=== PATIENT | male | born 1985 | race Caucasian/White ===

== ENCOUNTER 2018-03-01 11:51 | Emergency (ER) | payer OTHER ==
--- NOTE | 2018-03-01 14:46 | ER ---
Nurse's Notes [facility] Name: Yuri Puga Jr Age: 32 yrs Sex: Male : 1985 Arrival Date: 03/01/2018 Time: 11:55 Bed 24 Private MD: Diagnosis: Pilonidal cyst with abscess Presentation: 03/01 12:05 Presenting complaint: Patient states: A long time ago I had a pilonidal cyst and today lk1 it opened up and is oozing some infection. Transition of care: patient was not received from another setting of care. Onset of symptoms was March 01, 2018 at 10:00. Initial Sepsis Screen: Does the patient meet any 2 criteria? No. Patient's initial sepsis screen is negative. Does the patient have a suspected source of infection? Yes: Skin breakdown/wound. Care prior to arrival: None. 12:05 Method Of Arrival: Ambulatory lk1 12:05 Acuity: FERNANDA 3 lk1 Triage Assessment: 12:08 General: Appears in no apparent distress. Behavior is calm, cooperative, appropriate lk1 for age. Pain: Complains of pain in buttocks Pain currently is 5 out of 10 on a pain scale. Historical: - Allergies: 12:07 No Known Allergies; lk1 - PMHx: 12:07 None; lk1 - PSHx: 12:08 plastic surgery to upper lip; lk1 - Immunization history:: Adult Immunizations up to date. - Social history:: Smoking status: Patient uses tobacco products, chewing tobacco. Screenin:45 Abuse screen: Denies threats or abuse. Denies injuries from another. Nutritional aj1 screening: No deficits noted. Tuberculosis screening: No symptoms or risk factors identified. 15:14 Fall Risk None identified. mb3 Assessment: 14:45 General: Appears in no apparent distress. uncomfortable, Behavior is calm, cooperative, aj1 appropriate for age. Pain: Complains of pain in coccyx Pain does not radiate. Pain currently is 5 out of 10 on a pain scale. Quality of pain is described as sharp. Neuro: No deficits noted. Level of Consciousness is awake, alert, obeys commands, Oriented to person, place, time, situation, Gait is steady, Speech is normal, Facial symmetry appears normal. Cardiovascular: Patient's skin is warm and dry. Respiratory: Airway is patent Respiratory effort is even, unlabored, Respiratory pattern is regular, symmetrical. GI: No signs and/or symptoms were reported involving the gastrointestinal system. : No signs and/or symptoms were reported regarding the genitourinary system. EENT: No signs and/or symptoms were reported regarding the EENT system. Derm: Abscess located on buttocks. Musculoskeletal: No signs and/or symptoms reported regarding the musculoskeletal system. Circulation, motion, and sensation intact. Vital Signs: 12:09 BP 142 / 86; Pulse 108; Resp 15; Temp 98.1(TE); Pulse Ox 99% on R/A; Weight 112.94 kg lk1 (R); Height 5 ft. 8 in. (172.72 cm) (R); Pain 5/10; 15:16 BP 138 / 86; Pulse 90; Resp 16; Pulse Ox 99% on R/A; mb3 12:09 Body Mass Index 37.86 (112.94 kg, 172.72 cm) lk1 ED Course: 11:55 Patient arrived in ED. sb2 12:06 Triage completed. lk1 12:10 Arm band placed on right wrist. lk1 14:02 Jennifer Alvarado, RN is Primary Nurse. aj1 14:32 Reginaldo Lobato NP is PHCP. pm1 14:32 Jerman Dawson MD is Attending Physician. pm1 14:45 Louis Bennett MD is Referral Physician. pm1 14:45 Patient has correct armband on for positive identification. aj1 14:45 No provider procedures requiring assistance completed. aj1 15:14 Patient did not have IV access during this emergency room visit. mb3 Administered Medications: 14:56 Drug: [place] 10 mg-325 mg 1 tabs Route: PO; mb3 15:14 Follow up: Response: No adverse reaction mb3 14:56 Drug: Bactrim (160 mg-800 mg (DS) 1 tablet Route: PO; mb3 15:14 Follow up: Response: No adverse reaction mb3 14:56 Drug: Doxycycline 100 mg Route: PO; mb3 15:13 Follow up: Response: No adverse reaction mb3 Outcome: 14:46 Discharge ordered by . pm1 15:14 Discharged to home ambulatory. mb3 15:14 Condition: stable 15:14 Discharge instructions given to patient, Instructed on discharge instructions, follow up and referral plans. medication usage, Demonstrated understanding of instructions, follow-up care, medications, Prescriptions given X 3. 15:15 Patient left the ED. mb3 Signatures: Jennifer Alvarado RN RN aj1 Megan Isbell RN RN lk1 Reginaldo Lobato, EULALIO MONUMENT LETTERER pm1 Dionne Beckham sb2 Jonathan Williamson RN RN mb3
--- NOTE | 2018-03-01 14:47 | EDPHYS ---
Physician Documentation [facility] Name: Yuri Puga Jr Age: 32 yrs Sex: Male : 1985 Arrival Date: 03/01/2018 Time: 11:55 Bed 24 Private MD: ED Physician Jerman Dawson HPI: 03/01 15:00 This 32 yrs old Male presents to ER via Ambulatory with complaints of Wound pm1 Infection. 15:00 the patient presents with a swollen area of the coccyx. Description: draining, raised. pm1 Onset: The symptoms/episode began/occurred this morning. Possible cause(s): pilonidal cyst. Associated signs and symptoms: Pertinent positives: drainage, Pertinent negatives: fever. Modifying factors: the symptoms are alleviated by nothing, the symptoms are aggravated by touching. Severity of symptoms: in the emergency department the symptoms have improved. The patient has experienced similar episodes in the past, 5 other times. Treated with prior I\T\D. The patient has not recently seen a physician. Historical: - Allergies: 12:07 No Known Allergies; lk1 - PMHx: 12:07 None; lk1 - PSHx: 12:08 plastic surgery to upper lip; lk1 - Immunization history:: Adult Immunizations up to date. - Social history:: Smoking status: Patient uses tobacco products, chewing tobacco. ROS: 15:00 Constitutional: Negative for fever, chills, and weight loss, Eyes: Negative for injury, pm1 pain, redness, and discharge, ENT: Negative for injury, pain, and discharge, Neck: Negative for injury, pain, and swelling, Cardiovascular: Negative for chest pain, palpitations, and edema, Respiratory: Negative for shortness of breath, cough, wheezing, and pleuritic chest pain, Abdomen/GI: Negative for abdominal pain, nausea, vomiting, diarrhea, and constipation, Back: Negative for injury and pain, : Negative for injury, bleeding, discharge, and swelling, MS/Extremity: Negative for injury and deformity. 15:00 Neuro: Negative for headache, weakness, numbness, tingling, and seizure. 15:00 Skin: Positive for abscess, of the coccyx. Exam: 15:00 Constitutional: This is a well developed, well nourished patient who is awake, alert, pm1 and in no acute distress. Head/Face: Normocephalic, atraumatic. Neck: Trachea midline, no thyromegaly or masses palpated, and no cervical lymphadenopathy. Supple, full range of motion without nuchal rigidity, or vertebral point tenderness. No Meningismus. Chest/axilla: Normal chest wall appearance and motion. Nontender with no deformity. No lesions are appreciated. Cardiovascular: Regular rate and rhythm with a normal S1 and S2. No gallops, murmurs, or rubs. Normal PMI, no JVD. No pulse deficits. Respiratory: Lungs have equal breath sounds bilaterally, clear to auscultation and percussion. No rales, rhonchi or wheezes noted. No increased work of breathing, no retractions or nasal flaring. Abdomen/GI: Soft, non-tender, with normal bowel sounds. No distension or tympany. No guarding or rebound. No evidence of tenderness throughout. Back: No spinal tenderness. No costovertebral tenderness. Full range of motion. 15:00 Skin: abscess, that is small, no fluctuance, induration, pointing, or surrounding cellulitis. No drainage from abscess when expressed. Vital Signs: 12:09 BP 142 / 86; Pulse 108; Resp 15; Temp 98.1(TE); Pulse Ox 99% on R/A; Weight 112.94 kg lk1 (R); Height 5 ft. 8 in. (172.72 cm) (R); Pain 5/10; 15:16 BP 138 / 86; Pulse 90; Resp 16; Pulse Ox 99% on R/A; mb3 12:09 Body Mass Index 37.86 (112.94 kg, 172.72 cm) lk MDM: 14:32 Patient medically screened. pm1 14:44 Data reviewed: vital signs. Data interpreted: Pulse oximetry: on room air is 99 %. pm1 Interpretation: normal. Counseling: I had a detailed discussion with the patient and/or guardian regarding: the historical points, exam findings, and any diagnostic results supporting the discharge/admit diagnosis, the need for outpatient follow up, for definitive care, a general surgeon, to return to the emergency department if symptoms worsen or persist or if there are any questions or concerns that arise at home. Administered Medications: 14:56 Drug: [place] 10 mg-325 mg 1 tabs Route: PO; mb3 15:14 Follow up: Response: No adverse reaction mb3 14:56 Drug: Bactrim (160 mg-800 mg (DS) 1 tablet Route: PO; mb3 15:14 Follow up: Response: No adverse reaction mb3 14:56 Drug: Doxycycline 100 mg Route: PO; mb3 15:13 Follow up: Response: No adverse reaction mb3 Disposition: 03/02 06:15 Co-signature as Attending Physician, Jerman Dawson MD. Disposition: 03/01/18 14:46 Discharged to Home. Impression: Pilonidal cyst with abscess. - Condition is Stable. - Discharge Instructions: Pilonidal Cyst. - Prescriptions for Tylenol- Codeine #3 300-30 mg Oral Tablet - take 2 tablets by ORAL route every 6 hours As needed; 20 tablet. Doxycycline Hyclate 100 mg Oral Tablet - take 1 tablet by ORAL route every 12 hours; 20 tablet. Bactrim DS 800- 160 mg Oral Tablet - take 1 tablet by ORAL route every 12 hours for 10 days; 20 tablet. - Work release form, Medication Reconciliation Form, Thank You Letter, Antibiotic Education, Prescription Opioid Use form. - Follow up: Emergency Department; When: As needed; Reason: Worsening of condition. Follow up: Louis Bennett MD; When: 2 - 3 days; Reason: Recheck today's complaints, Continuance of care, Re-evaluation by your physician. - Problem is new. - Symptoms have improved. Signatures: Megan Isbell RN RN lk1 Reginaldo Lobato, [employer] pm1 Jerman Dawson MD MD Jonathan Williamson RN RN mb3 Corrections: (The following items were deleted from the chart) 03/01 14:46 14:46 03/01/2018 14:46 Discharged to Home. Impression: Pilonidal cyst without abscess. pm1 Condition is Stable. Forms are Medication Reconciliation Form, Thank You Letter, Antibiotic Education, Prescription Opioid Use. Follow up: Emergency Department; When: As needed; Reason: Worsening of condition. Follow up: Louis Bennett; When: 2 - 3 days; Reason: Recheck today's complaints, Continuance of care, Re-evaluation by your physician. Problem is new. Symptoms have improved. pm1 15:15 14:46 03/01/2018 14:46 Discharged to Home. Impression: Pilonidal cyst with abscess. mb3 Condition is Stable. Forms are Medication Reconciliation Form, Thank You Letter, Antibiotic Education, Prescription Opioid Use. Follow up: Emergency Department; When: As needed; Reason: Worsening of condition. Follow up: Louis Bennett; When: 2 - 3 days; Reason: Recheck today's complaints, Continuance of care, Re-evaluation by your physician. Problem is new. Symptoms have improved. pm1
[2018-03-01] MEDS ORDERED: SMZ./TMP. 800/160 MG TABLET ONE (14:53)
[2018-03-01] MEDS ORDERED: HYDROCODONE/APAP 10/325 TAB ONE (14:53)
[2018-03-01] MEDS ORDERED: DOXYCYCLINE 100 MG CAP PO ONE (14:53)
== END 2018-03-01 15:15 | disposition home or self-care (01) ==
LOC: ER 11:51
DX: L05.01 Pilonidal cyst with abscess (principal)
CPT/HCPCS: 99283

== ENCOUNTER 2019-01-06 16:15 | Emergency (ER) | payer BC ==
--- NOTE | 2019-01-06 17:26 | EKG ---
Test Date: 2019-01-06 Test Time: 16:35:41 [employer]: [employer] MEASUREMENT RESULTS: Intervals: Rate: 110 AR: 148 QRSD: 88 QT: 312 QTc: 422 [place]: P: 37 AR: 148 QRS: 65 T: 12 INTERPRETIVE STATEMENTS: Sinus tachycardia Cannot rule out Anterior infarct, age undetermined Abnormal ECG Compared to ECG 04/20/2016 08:49:44 Myocardial infarct finding now present ST (T wave) deviation no longer present Electronically Signed On 01-06-19 17:25:33 CDT by Sandro Hunt
--- NOTE | 2019-01-06 17:41 | RAD REPORT ---
EXAM DESCRIPTION: RAD - Chest Single View - 01/06/2019 5:36 pm CLINICAL HISTORY: CHEST PAIN Chest pain. COMPARISON: Chest Single View dated 09/24/2017; Chest Single View dated 04/20/2016 FINDINGS: Portable technique limits examination quality. The lungs are grossly clear. The heart is normal in size. No displaced fractures. IMPRESSION: No acute intrathoracic process suspected.
[2019-01-06] MEDS ORDERED: ASPIRIN 81 MG CHEWABLE TABLET ONE (17:47)
[2019-01-06] MEDS ORDERED: KETOROLAC 30 MG/ML INJ ONE (17:47)
[2019-01-06 17:49] LABS: Absolute Monocytes 0.7 K/uL (0.1-1.3); Absolute Neutrophil 4.4 K/uL (1.8-8.0); Basophils % 0.5 % (0-1.3); Hematocrit 45.3 % (39.6-49.0); Lymphocytes % 36.8 % (15.3-44.8); MPV 8.9 fL (7.6-11.3); Monocytes % 8.7 % (3.3-12.3); RBC Red Blood Cell Count 5.02 M/uL (4.33-5.43)
[2019-01-06 18:08] LABS: Protime INR 0.96
[2019-01-06 18:10] LABS: ALT/SGPT 47 U/L (12-78); AST/SGOT 21 U/L (15-37); Alkaline Phosphatase 90 U/L (45-117); BUN Blood Urea Nitrogen 7 mg/dL (7-18); Bicarbonate 26 mmol/L (21-32); Bilirubin Direct < 0.1 mg/dL (0-0.2); Bilirubin Total 0.3 mg/dL (0.2-1.0); Glucose Level 114 mg/dL (74-106); Magnesium 2.1 mg/dL (1.8-2.4); Potassium 3.5 mmol/L (3.5-5.1); Protein, Total 8.1 g/dL (6.4-8.2); Sodium Level 142 mmol/L (136-145); Troponin (Emerg Dept Use Only) < 0.02 ng/mL (0.0-0.045)
[2019-01-06 18:19] LABS: NT PRO-BNP < 5 pg/mL (<125)
[2019-01-06] MEDS ORDERED: NA CHLORIDE 0.9% 1,000 ML ONE (18:28)
[2019-01-06 18:42] LABS: Barbiturates NEGATIVE (NEGATIVE); Benzodiazepines NEGATIVE (NEGATIVE); Cocaine NEGATIVE (NEGATIVE); METHAMPHETAM NEGATIVE (NEGATIVE); Methadone NEGATIVE (NEGATIVE); Opiates NEGATIVE (NEGATIVE); Phencyclidine NEGATIVE (NEGATIVE); THC Cannibis NEGATIVE (NEGATIVE)
--- NOTE | 2019-01-06 18:51 | RAD REPORT ---
EXAM DESCRIPTION: US - Extrem Venous W Compress [place] - 01/06/2019 6:46 pm CLINICAL HISTORY: PAIN Bilateral leg edema and swelling. COMPARISON: No comparisons TECHNIQUE: Real-time sonographic interrogation of the left and right lower extremity deep venous sys tems was performed. FINDINGS: Normal compressibility, flow augmentation, phasic flow and spontaneous flow is identified in both the left and right lower extremity deep venous systems. IMPRESSION: No sonographic evidence of left or right lower extremity deep venous thrombosis.
--- NOTE | 2019-01-06 19:13 | EDPHYS ---
Physician Documentation [facility] Name: Yuri Puga Jr Age: 33 yrs Sex: Male : 1985 Arrival Date: 01/06/2019 Time: 16:18 Bed 2 Private MD: Fran Richardson E ED Physician Av Thibodeaux HPI: 01/06 17:22 This 33 yrs old Male presents to ER via Ambulatory with complaints of Chest rogelio Pain, Arm Pain, Feet Swelling. 17:22 The patient or guardian reports chest pain that is located primarily in the anterior rogelio chest wall, left. The pain does not radiate. Associated signs and symptoms: The patient has no apparent associated signs or symptoms. The chest pain is described as aching. Modifying factors: The symptoms are alleviated by remaining still, the symptoms are aggravated by movement, palpation of area. Severity of pain: At its worst the pain was mild in the emergency department the pain is unchanged. The patient has not experienced similar symptoms in the past. Historical: - Allergies: 16:26 No Known Allergies; aa5 - Home Meds: 16:26 None [Active]; aa5 - PMHx: 16:27 None; aa5 - PSHx: 16:26 plastic surgery to upper lip; Appendectomy; aa5 - Immunization history:: Flu vaccine is not up to date. - Social history:: Smoking status: Patient uses tobacco products, chewing tobacco. - Ebola Screening: : No symptoms or risks identified at this time. - Family history:: not pertinent. ROS: 17:22 Constitutional: Negative for fever, chills, and weight loss, Eyes: Negative for injury, rogelio pain, redness, and discharge, ENT: Negative for injury, pain, and discharge, Neck: Negative for injury, pain, and swelling, Cardiovascular: Negative for chest pain, palpitations, and edema, Respiratory: Negative for shortness of breath, cough, wheezing, and pleuritic chest pain, Abdomen/GI: Negative for abdominal pain, nausea, vomiting, diarrhea, and constipation, Back: Negative for injury and pain, : Negative for injury, bleeding, discharge, and swelling, MS/Extremity: Negative for injury and deformity, Skin: Negative for injury, rash, and discoloration, Neuro: Negative for headache, weakness, numbness, tingling, and seizure, Psych: Negative for depression, anxiety, suicide ideation, homicidal ideation, and hallucinations, Allergy/Immunology: Negative for hives, rash, and allergies, Endocrine: Negative for neck swelling, polydipsia, polyuria, polyphagia, and marked weight changes, Hematologic/Lymphatic: Negative for swollen nodes, abnormal bleeding, and unusual bruising. Exam: 17:22 Constitutional: This is a well developed, well nourished patient who is awake, alert, rogelio and in no acute distress. Head/Face: Normocephalic, atraumatic. Eyes: Pupils equal round and reactive to light, extra-ocular motions intact. Lids and lashes normal. Conjunctiva and sclera are non-icteric and not injected. Cornea within normal limits. Periorbital areas with no swelling, redness, or edema. ENT: Nares patent. No nasal discharge, no septal abnormalities noted. Tympanic membranes are normal and external auditory canals are clear. Oropharynx with no redness, swelling, or masses, exudates, or evidence of obstruction, uvula midline. Mucous membranes moist. Neck: Trachea midline, no thyromegaly or masses palpated, and no cervical lymphadenopathy. Supple, full range of motion without nuchal rigidity, or vertebral point tenderness. No Meningismus. Cardiovascular: Regular rate and rhythm with a normal S1 and S2. No gallops, murmurs, or rubs. Normal PMI, no JVD. No pulse deficits. Respiratory: Lungs have equal breath sounds bilaterally, clear to auscultation and percussion. No rales, rhonchi or wheezes noted. No increased work of breathing, no retractions or nasal flaring. Abdomen/GI: Soft, non-tender, with normal bowel sounds. No distension or tympany. No guarding or rebound. No evidence of tenderness throughout. Back: No spinal tenderness. No costovertebral tenderness. Full range of motion. Male : Normal genitalia with no discharge or lesions. Skin: Warm, dry with normal turgor. Normal color with no rashes, no lesions, and no evidence of cellulitis. 17:22 Chest/axilla: Inspection: normal, Palpation: tenderness, that is mild, of the left clavicle. 17:27 Musculoskeletal/extremity: ROM: full active range of motion, full passive range of rogelio motion, Circulation is intact in all extremities. Sensation intact. Compartment Syndrome exam of affected extremity: is normal. no pain, no numbness, no tingling, no sensation deficit, no palor, no weak pulses, DVT Exam: No signs of deep vein thrombosis. no pain, no swelling, no tenderness, negative Homans' sign noted on exam, no appreciated bluish discoloration, no erythema, no increased warmth. Vital Signs: 16:25 BP 143 / 70; Pulse 122; Resp 18 S; Temp 98.6(TE); Pulse Ox 96% ; Weight 120.2 kg (R); aa5 Height 5 ft. 8 in. (172.72 cm) (R); Pain 5/10; 16:35 BP 135 / 90; Pulse 103; Resp 17; Pulse Ox 98% on R/A; sg 19:15 BP 124 / 74; Pulse 84; Resp 18; Pulse Ox 98% on R/A; lp1 16:25 Body Mass Index 40.29 (120.20 kg, 172.72 cm) aa5 MDM: 16:55 Patient medically screened. [facility] 17:22 Data reviewed: vital signs, nurses notes, lab test result(s), EKG, radiologic studies, [facility] plain films. 01/06 17:03 Order name: Basic Metabolic Panel; Complete Time: 19:08 [facility] 01/06 17:03 Order name: CBC with Diff; Complete Time: 18:06 [facility] 01/06 17:03 Order name: LFT's; Complete Time: 19:08 [facility] 01/06 17:03 Order name: Magnesium; Complete Time: 19:08 [facility] 01/06 17:03 Order name: NT PRO-BNP; Complete Time: 19:08 [facility] 01/06 17:03 Order name: PT-INR; Complete Time: 18:15 [facility] 01/06 17:03 Order name: Troponin (emerg Dept Use Only); Complete Time: 19:08 [facility] 01/06 17:03 Order name: XRAY Chest (1 view); Complete Time: 17:42 [facility] 01/06 17:36 Order name: D-Dimer; Complete Time: 18:06 [facility] 01/06 18:05 Order name: CT Chest For PE Angio 01/06 18:05 Order name: Extremity Venous W Compression Bilateral US; Complete Time: 19:08 01/06 18:16 Order name: UDS; Complete Time: 19:08 [facility] 01/06 18:39 Order name: Urine Dipstick--Ancillary (enter results) 01/06 17:03 Order name: EKG; Complete Time: 17:04 [facility] 01/06 17:03 Order name: Cardiac monitoring; Complete Time: 17:35 [facility] 01/06 17:03 Order name: EKG - Nurse/Tech; Complete Time: 17:35 [facility] 01/06 17:03 Order name: IV Saline Lock; Complete Time: 17:35 [facility] 01/06 17:03 Order name: Labs collected and sent; Complete Time: 17:35 [facility] 01/06 17:03 Order name: O2 Per Protocol; Complete Time: 17:34 [facility] 01/06 17:03 Order name: O2 Sat Monitoring; Complete Time: 17:34 [facility] 01/06 19:26 Order name: EKG - Nurse/Tech; Complete Time: 19:39 lp1 Administered Medications: 17:40 Drug: Aspirin 81 mg Route: PO; sg 17:42 Drug: TORadol 30 mg Route: IVP; Site: left antecubital; sg 18:20 Drug: NS 0.9% 1000 ml Route: IV; Rate: 1 bolus; Site: left antecubital; sg 19:52 Follow up: IV Status: Completed infusion; IV Intake: 1000ml lp1 19:26 Drug: [place] 10 mg-325 mg 1 tabs Route: PO; lp1 19:52 Follow up: Response: No adverse reaction lp1 Disposition: 01/06/19 19:12 Discharged to Home. Impression: Strain of muscle and tendon of front wall of thorax, Other chest pain. - Condition is Stable. - Discharge Instructions: Nonspecific Chest Pain, Chest Wall Pain, Chest Wall Pain, [id number], Nonspecific Chest Pain, [id number], Aspirin and Your Heart. - Prescriptions for Ibuprofen 600 mg Oral Tablet - take 1 tablet by ORAL route every 8 hours As needed take with food; 21 tablet. - Medication Reconciliation Form, Thank You Letter, Antibiotic Education, Prescription Opioid Use form. - Follow up: Fran Richardson; When: 2 - 3 days; Reason: Recheck today's complaints, Continuance of care, Re-evaluation by your physician. Follow up: Pb Garner; When: 2 - 3 days; Reason: Recheck today's complaints, Re-evaluation by your physician. - Problem is new. - Symptoms have improved. Signatures: Dispatcher [employer] EDJaleel Lewis, RN RN Av Poole MD MD cha Calderon, Audri, RN RN aa5 Kisha South RN RN lp1 Corrections: (The following items were deleted from the chart) 19:53 19:12 01/06/2019 19:12 Discharged to Home. Impression: Strain of muscle and tendon of lp1 front wall of thorax; Other chest pain. Condition is Stable. Discharge Instructions: Nonspecific Chest Pain, Chest Wall Pain, Chest Wall Pain, [id number], Nonspecific Chest Pain, [id number], Aspirin and Your Heart. Prescriptions for Ibuprofen 600 mg Oral Tablet - take 1 tablet by ORAL route every 8 hours As needed take with food; 21 tablet. and Forms are Medication Reconciliation Form, Thank You Letter, Antibiotic Education, Prescription Opioid Use. Follow up: Fran Richardson; When: 2 - 3 days; Reason: Recheck today's complaints, Continuance of care, Re-evaluation by your physician. Follow up: Pb Garner; When: 2 - 3 days; Reason: Recheck today's complaints, Re-evaluation by your physician. Problem is new. Symptoms have improved. rogelio
--- NOTE | 2019-01-06 19:13 | ER ---
Nurse's Notes [facility] Name: Yuri Puga Jr Age: 33 yrs Sex: Male : 1985 Arrival Date: 01/06/2019 Time: 16:18 Bed 2 Private MD: Fran Richardson E Diagnosis: Strain of muscle and tendon of front wall of thorax;Other chest pain Presentation: 01/06 16:24 Presenting complaint: Patient states: left-sided chest pain on and off x 2 weeks ago. aa5 Pt reports chest pain radiates to left shoulder and left scapular area. Pt denies SOB. Also c/o swelling to feet. Transition of care: patient was not received from another setting of care. Onset of symptoms was December 2018. Risk Assessment: Do you want to hurt yourself or someone else? Patient reports no desire to harm self or others. Initial Sepsis Screen: Does the patient meet any 2 criteria? No. Patient's initial sepsis screen is negative. Does the patient have a suspected source of infection? No. Patient's initial sepsis screen is negative. Care prior to arrival: None. 16:24 Method Of Arrival: Ambulatory aa5 16:24 Acuity: FERNANDA 2 aa5 Historical: - Allergies: 16:26 No Known Allergies; aa5 - Home Meds: 16:26 None [Active]; aa5 - PMHx: 16:27 None; aa5 - PSHx: 16:26 plastic surgery to upper lip; Appendectomy; aa5 - Immunization history:: Flu vaccine is not up to date. - Social history:: Smoking status: Patient uses tobacco products, chewing tobacco. - Ebola Screening: : No symptoms or risks identified at this time. - Family history:: not pertinent. Screenin:35 Abuse screen: Denies threats or abuse. Denies injuries from another. Nutritional sg screening: No deficits noted. Tuberculosis screening: No symptoms or risk factors identified. Never had TB. Fall Risk None identified. Assessment: 16:35 General: Appears in no apparent distress. well groomed, well developed, well nourished, sg Behavior is calm, cooperative, appropriate for age. Pain: Complains of pain in left scapular area and left arm Pain radiates to left arm Quality of pain is described as sharp, Aggravated by pulling and pushing on heavy objects reproduces the pain per the patient. Neuro: Level of Consciousness is awake, alert, obeys commands, Oriented to person, place, time, situation, Furniture Cleaner are equal bilaterally Moves all extremities. Full function Gait is steady, Speech is normal, Facial symmetry appears normal, Pupils are PERRLA. Cardiovascular: Capillary refill is brisk in bilateral fingers Patient's skin is warm and dry. Chest pain quality is sharp. Respiratory: Airway is patent Respiratory effort is even, unlabored, Respiratory pattern is regular, symmetrical. GI: Abdomen is round non-distended, Bowel sounds present X 4 quads. : No signs and/or symptoms were reported regarding the genitourinary system. EENT: No signs and/or symptoms were reported regarding the EENT system. Derm: Skin is pink, warm \T\ dry. Musculoskeletal: Circulation, motion, and sensation intact. Range of motion: intact in all extremities, pt reports feet swelling that is intermittent, denies any swelling today. 19:20 Reassessment: Patient returned from CT; States continued pain to chest radiating to lp1 left shoulder; Provider notified; Verbal order for Boylston 10-325mg PO and repeat EKG. Vital Signs: 16:25 BP 143 / 70; Pulse 122; Resp 18 S; Temp 98.6(TE); Pulse Ox 96% ; Weight 120.2 kg (R); aa5 Height 5 ft. 8 in. (172.72 cm) (R); Pain 5/10; 16:35 BP 135 / 90; Pulse 103; Resp 17; Pulse Ox 98% on R/A; sg 19:15 BP 124 / 74; Pulse 84; Resp 18; Pulse Ox 98% on R/A; lp1 16:25 Body Mass Index 40.29 (120.20 kg, 172.72 cm) aa5 ED Course: 16:18 Patient arrived in ED. mr 16:19 Fran Richardson MD is Private Physician. mr 16:24 Arm band placed on. aa5 16:25 Triage completed. aa5 16:38 Keron Mendoza, SOCRATES is Primary Nurse. bp 16:40 Patient has correct armband on for positive identification. Bed in low position. Call sg light in reach. Side rails up X2. Adult w/ patient. engineering surveyor on. Pulse ox on. NIBP on. Head of bed elevated. 16:55 Av Thibodeaux MD is Attending Physician. [facility] 17:03 EKG done, by clean room technician. reviewed by Av Thibodeaux MD. 3 17:33 Initial lab(s) drawn, by me, sent to lab. Inserted saline lock: 20 gauge in left dh3 antecubital area, using aseptic technique. Blood collected. 17:36 XRAY Chest (1 view) In Process Unspecified. EDMS 18:30 Radiology exam delayed due to [place] in patient's room at this time. nj 18:45 Extremity Venous W Compression Bilateral US In Process Unspecified. EDMS 19:05 CT Chest For PE Angio In Process Unspecified. EDMS 19:12 Fran Richardson MD is Referral Physician. [facility] 19:12 Pb Garner MD is Referral Physician. [facility] 19:15 Patient maintains SpO2 saturation greater than 95% on room air. lp1 19:40 No provider procedures requiring assistance completed. lp1 19:52 IV discontinued, No redness/swelling at site. Pressure dressing applied. lp1 Administered Medications: 17:40 Drug: Aspirin 81 mg Route: PO; sg 17:42 Drug: TORadol 30 mg Route: IVP; Site: left antecubital; sg 18:20 Drug: NS 0.9% 1000 ml Route: IV; Rate: 1 bolus; Site: left antecubital; sg 19:52 Follow up: IV Status: Completed infusion; IV Intake: 1000ml lp1 19:26 Drug: Boylston 10 mg-325 mg 1 tabs Route: PO; lp1 19:52 Follow up: Response: No adverse reaction lp1 Intake: 19:52 IV: 1000ml; Total: 1000ml. lp1 Outcome: 19:12 Discharge ordered by . [facility] 19:52 Discharged to home ambulatory, with significant other. lp1 19:52 Condition: improved 19:52 Discharge instructions given to patient, Instructed on discharge instructions, follow up and referral plans. medication usage, Demonstrated understanding of instructions, follow-up care, medications, Prescriptions given X 1. 19:53 Patient left the ED. lp1 Signatures: Dispatcher [employer] EDMS Jaleel Glover, RN RN Av Poole MD MD cha Rivera, Mary mr NievesMaria Victoria, RN RN 5 Kisha South RN RN 1 Allan Bledsoe Deanna [facility] Keron Mendoza RN RN bp Simran Ornelas 3 Corrections: (The following items were deleted from the chart) 16:27 16:24 Acuity: FERNANDA 3 aa5 aa5 16:48 16:35 Pain: Complains of pain in right posterior upper chest wall Pain radiates to sg right arm Quality of pain is described as sharp, Aggravated by pulling and pushing on heavy objects reproduces the pain per the patient sg
--- NOTE | 2019-01-06 19:15 | RAD REPORT ---
EXAM DESCRIPTION: CT - Chest For Pe Angio - 01/06/2019 7:05 pm CLINICAL HISTORY: Chest pain. CHEST PAIN COMPARISON: No comparisons TECHNIQUE: CT angiogram of the pulmonary arteries was performed with MIP. All CT scans are performed using dose optimization technique as appropriate and may include automated exposure control or mA/KV adjustment according to patient size. FINDINGS: No evidence of pulmonary thromboembolism. No acute aortic finding demonstrated. The lungs are clear. No significant pericardial or pleural fluid. No concerning bony finding. IMPRESSION: No evidence of pulmonary thromboembolism. No acute lung findings.
[2019-01-06] MEDS ORDERED: HYDROCODONE/APAP 10/325 TAB ONE (19:33)
[2019-01-06 19:47] LABS: Urine Blood NEGATIVE (NEG); Urine Glucose NEGATIVE (NEG); Urine Protein NEGATIVE (NEG); Urine Specific Gravity <1.005 (1.005-1.030); Urine pH 5.5 (5.0-7.0)
--- NOTE | 2019-01-07 17:17 | EKG ---
Test Date: 2019-01-06 Test Time: 19:34:38 Traffic Officer: [id number] MEASUREMENT RESULTS: Intervals: Rate: 82 WY: 132 QRSD: 82 QT: 372 QTc: 434 [place]: P: 22 WY: 132 QRS: 74 T: 29 INTERPRETIVE STATEMENTS: Normal sinus rhythm Normal ECG Compared to ECG 01/06/2019 16:35:41 Sinus tachycardia no longer present Myocardial infarct finding no longer present Electronically Signed On 01-07-19 17:15:04 CDT by Sandro Hunt
== END 2019-01-06 19:53 | disposition home or self-care (01) ==
LOC: ER 16:15
DX: S29.011A Strain of muscle and tendon of front wall of thorax, initial encounter (principal); Z72.0 Tobacco use
CPT/HCPCS: 36415; 71045; 71275; 80048; 80076; 80307; 81003; 83735; 83880; 84484; 85025; 85379; 85610; 93005; 93970; 96361; 96374; 99285; J7030; Q9967

== ENCOUNTER 2019-04-27 22:28 | Emergency (ER) | payer BC ==
--- NOTE | 2019-04-28 02:41 | ER ---
Nurse's Notes [facility] Name: Yuri Puga Jr Age: 33 yrs Sex: Male : 1985 Arrival Date: 04/27/2019 Time: 22:30 Bed 6 Private MD: Fran Richardson E Diagnosis: Paresthesia of skin-left side of face;Left side facial droop Presentation: 04/27 22:43 Presenting complaint: Patient states: Yesterday at about 11am I felt like my lips were la1 swollen and it was harder to dip my tobacco, from there it progressed to decreased sensation and numbness on the left side of my face. Transition of care: patient was not received from another setting of care. Onset of symptoms was April 27, 2019. Risk Assessment: Do you want to hurt yourself or someone else? Patient reports no desire to harm self or others. Initial Sepsis Screen: Does the patient meet any 2 criteria? No. Patient's initial sepsis screen is negative. Does the patient have a suspected source of infection? No. Patient's initial sepsis screen is negative. Care prior to arrival: None. 22:43 Method Of Arrival: Ambulatory la1 22:43 Acuity: FERNANDA 3 la1 Historical: - Allergies: 22:45 No Known Allergies; la1 - Home Meds: 22:45 None [Active]; la1 - PMHx: 22:45 None; la1 - PSHx: 22:45 Appendectomy; la1 - Immunization history:: Adult Immunizations up to date. - Social history:: Smoking status: Patient uses tobacco products, chewing tobacco. - Ebola Screening: : No symptoms or risks identified at this time. Screenin:46 Abuse screen: Denies threats or abuse. Nutritional screening: No deficits noted. la1 Tuberculosis screening: No symptoms or risk factors identified. VAN Screening: Arm Drift: Patient shows no arm weakness. Patient is VAN negative. Fall Risk None identified. 23:09 VAN Screening: Arm Drift: Patient shows no arm weakness. Patient is VAN negative. jd3 Assessment: 22:47 Neuro: Level of Consciousness is awake, alert, obeys commands, Oriented to person, la1 place, time, situation, Resaw Feeder are equal bilaterally Moves all extremities. Full function Gait is steady, Speech is normal, Facial droop on left, Pupils are PERRLA. 23:03 General: Appears in no apparent distress. uncomfortable, Behavior is calm, cooperative, jd3 appropriate for age, anxious. Pain: Denies pain. Neuro: Level of Consciousness is awake, alert, obeys commands, Oriented to person, place, time, situation, Resaw Feeder are equal bilaterally Moves all extremities. Full function Gait is steady, Speech is normal, Facial symmetry appears normal, Pupils are PERRLA, Numbness in left side of face Reports numbness in left side of face since yesterday morning. Cardiovascular: Denies chest pain, nausea, shortness of breath, Capillary refill < 3 seconds Patient's skin is warm and dry. Respiratory: Airway is patent Respiratory effort is even, unlabored, Respiratory pattern is regular, symmetrical, Denies cough, shortness of breath. GI: No signs and/or symptoms were reported involving the gastrointestinal system. : No signs and/or symptoms were reported regarding the genitourinary system. EENT: No signs and/or symptoms were reported regarding the EENT system. Derm: Skin is intact, Skin is dry, Skin is normal, Skin temperature is warm. Musculoskeletal: Circulation, motion, and sensation intact. Range of motion: intact in all extremities. 04/28 00:15 Reassessment: Patient appears in no apparent distress at this time. No changes from jd3 previously documented assessment. Patient and/or family updated on plan of care and expected duration. Pain level reassessed. Patient is alert, oriented x 3, equal unlabored respirations, skin warm/dry/pink. awaiting CT scan. 01:35 Reassessment: Patient appears in no apparent distress at this time. No changes from jd3 previously documented assessment. Patient and/or family updated on plan of care and expected duration. Pain level reassessed. Patient is alert, oriented x 3, equal unlabored respirations, skin warm/dry/pink. 02:56 Reassessment: Patient appears in no apparent distress at this time. Patient and/or jd3 family updated on plan of care and expected duration. Pain level reassessed. Patient is alert, oriented x 3, equal unlabored respirations, skin warm/dry/pink. reported understanding of discharge instructions. Patient denies pain at this time. Vital Signs: 04/27 22:45 BP 146 / 80; Pulse 95; Resp 16; Temp 97.6; Pulse Ox 98% on R/A; Weight 120.2 kg; Height la1 5 ft. 8 in. (172.72 cm); 04/28 01:36 BP 142 / 94; Pulse 86; Resp 15 S; Pulse Ox 99% on R/A; Pain 0/10; jd3 04/27 22:45 Body Mass Index 40.29 (120.20 kg, 172.72 cm) la1 NIH Stroke Scale Scores: 04/27 22:46 NIHSS Score: 1 la1 23:09 NIHSS Score: 0 j ED Course: 22:30 Patient arrived in ED. mr 22:30 Fran Richardson MD is Private Physician. mr 22:45 Triage completed. la1 22:45 Arm band placed on left wrist. la1 22:59 Piotr Hendrix, SOCRATES is Primary Nurse. jd3 23:10 Patient has correct armband on for positive identification. Bed in low position. Call jd3 light in reach. Side rails up X 1. Adult w/ patient. 23:59 Av Gipson PA is PHCP. cp 23:59 Noma Martini MD is Attending Physician. cp 04/28 02:24 CT Head Brain wo Cont In Process Unspecified. EDMS 02:38 Cesar Delgado MD is Referral Physician. cp 02:57 No provider procedures requiring assistance completed. Patient did not have IV access j during this emergency room visit. Administered Medications: No medications were administered Outcome: 02:40 Discharge ordered by . cp 02:57 Discharged to home ambulatory, with family. jd3 02:57 Condition: stable 02:57 Discharge instructions given to patient, family, Instructed on discharge instructions, follow up and referral plans. medication usage, Demonstrated understanding of instructions, follow-up care, medications, Prescriptions given X 3. 02:58 Patient left the ED. jd3 NIH Stroke Scale - NIH Stroke Score Date: 04/27/2019 Time: 22:46 Total Score = 1 1a. Level of Consciousness (LOC) - 0(Alert) 1b. Level of Consciousness (LOC) (Year \T\ Age) - 0(Both) 1c. LOC Commands (Open \T\ Closes Eyes/Manager Desktop) - 0(Both) 2. Best Gaze (Lateral Gaze Paresis) - 0(Normal) 3. Visual Field Loss - 0(No visual loss) 4. Facial Palsy - 1(Minor Paralysis) 5a. Left Arm: Motor (10-second hold) - 0(No drift) 5b. Right Arm: Motor (10-second hold) - 0(No drift) 6a. Left Leg: Motor (5-second hold - always test supine) - 0(No drift) 6b. Right Leg: Motor (5-second hold - always test supine) - 0(No drift) 7. Limb Ataxia (finger/nose \T\ heel/cobian - test with eyes open) - 0(Absent) 8. Sensory Loss (pinprick arms/legs/face) - 0(Normal) 9. Best Language: Aphasia (description/naming/reading) - 0(No aphasia) 10. Dysarthria (speech clarity - read or repeat words) - 0(Normal) 11. Extinction and Inattention (visual/tactile/auditory/spatial/personal) - 0(No abnormality) Initials: la1 NIH Stroke Scale - NIH Stroke Score Date: 04/27/2019 Time: 23:09 Total Score = 0 1a. Level of Consciousness (LOC) - 0(Alert) 1b. Level of Consciousness (LOC) (Year \T\ Age) - 0(Both) 1c. LOC Commands (Open \T\ Closes Eyes/Manager Desktop) - 0(Both) 2. Best Gaze (Lateral Gaze Paresis) - 0(Normal) 3. Visual Field Loss - 0(No visual loss) 4. Facial Palsy - 0(Normal) 5a. Left Arm: Motor (10-second hold) - 0(No drift) 5b. Right Arm: Motor (10-second hold) - 0(No drift) 6a. Left Leg: Motor (5-second hold - always test supine) - 0(No drift) 6b. Right Leg: Motor (5-second hold - always test supine) - 0(No drift) 7. Limb Ataxia (finger/nose \T\ heel/cobian - test with eyes open) - 0(Absent) 8. Sensory Loss (pinprick arms/legs/face) - 0(Normal) 9. Best Language: Aphasia (description/naming/reading) - 0(No aphasia) 10. Dysarthria (speech clarity - read or repeat words) - 0(Normal) 11. Extinction and Inattention (visual/tactile/auditory/spatial/personal) - 0(No abnormality) Initials: jd3 Signatures: Dispatcher [employer] Salome Smith mr MyaMagdiel RN RN la1 Av Gipson PA PA cp Davies, Jonathon RN RN jd3 Corrections: (The following items were deleted from the chart) 04/27 23:09 23:03 Musculoskeletal: Circulation, motion, and sensation intact. Range of jd3 motion: jd3
--- NOTE | 2019-04-28 02:41 | EDPHYS ---
Physician Documentation [facility] Name: Yuri Puga Jr Age: 33 yrs Sex: Male : 1985 Arrival Date: 04/27/2019 Time: 22:30 Bed 6 Private MD: Fran Richardson E ED Physician Noam Martini HPI: 04/28 00:05 This 33 yrs old Male presents to ER via Ambulatory with complaints of Facial cp Swelling, Numbness Of Lips. 00:05 The patient's problem is reported as paresthesias, in left side of face, felt swollen. cp Onset: The symptoms/episode began/occurred at 10:00, 04-26-2019. 00:05 Duration: The episode is continuous. Associated signs and symptoms: Pertinent cp negatives: headache, nausea, vertigo, weakness. Severity of symptoms: in the emergency department the symptoms are unchanged. Patient's baseline: Neuro: alert and fully oriented, Motor: no deficits, Ambulation: walks without assistance, Speech: normal. Historical: - Allergies: 04/27 22:45 No Known Allergies; la1 - Home Meds: 22:45 None [Active]; la1 - PMHx: 22:45 None; la1 - PSHx: 22:45 Appendectomy; la1 - Immunization history:: Adult Immunizations up to date. - Social history:: Smoking status: Patient uses tobacco products, chewing tobacco. - Ebola Screening: : No symptoms or risks identified at this time. ROS: 04/28 00:10 Constitutional: Negative for body aches, chills, fever, poor PO intake. cp 00:10 Eyes: Negative for injury, pain, redness, and discharge. cp 00:10 ENT: Negative for drainage from ear(s), ear pain, hearing loss, sore throat, difficulty swallowing, difficulty handling secretions. 00:10 Neck: Negative for pain with movement, pain at rest, stiffness, bony tenderness. 00:10 Cardiovascular: Negative for chest pain, edema, palpitations. 00:10 Respiratory: Negative for cough, shortness of breath, wheezing. 00:10 Abdomen/GI: Negative for abdominal pain, nausea, vomiting, and diarrhea. 00:10 Skin: Negative for rash. 00:10 Neuro: Positive for of the left side of face, paresthesias, facial droop, Negative for altered mental status, dizziness, headache. 00:10 All other systems are negative. Exam: 00:15 Constitutional: The patient appears in no acute distress, alert, awake, cp non-diaphoretic, non-toxic, well developed, well nourished. 00:15 Head/face: Noted is mild left lower lip droop. cp 00:15 Eyes: Periorbital structures: appear normal, Pupils: equal, round, and reactive to light and accomodation, Extraocular movements: intact throughout, Conjunctiva: normal, no exudate, no injection, Sclera: no appreciated abnormality, Lids and lashes: appear normal, bilaterally. 00:15 ENT: External ear(s): are unremarkable, Ear canal(s): are normal, clear, TM's: bulging, is not appreciated, bilaterally, dullness, bilaterally, erythema, is not appreciated, bilaterally, Nose: is normal, Mouth: Lips: moist, Oral mucosa: normal, Tongue: is normal, drooling, is not appreciated, Posterior pharynx: is normal, airway is patent, no erythema, no exudate. 00:15 Neck: ROM/movement: is normal, is supple, without pain, no range of motions limitations, no meningismus, no nuchal rigidity. 00:15 Chest/axilla: Inspection: normal, Palpation: is normal, no crepitus, no tenderness. 00:15 Cardiovascular: Rate: normal, Rhythm: regular. 00:15 Respiratory: the patient does not display signs of respiratory distress, Respirations: normal, no use of accessory muscles, no retractions, no splinting, no tachypnea. 00:15 Abdomen/GI: Inspection: abdomen appears normal. 00:15 Skin: no rash present. 00:15 Neuro: Orientation: is normal, Mentation: is normal, Cerebellar function: is grossly normal, Motor: moves all fours, strength is normal, Sensation: pin prick is decreased in the left side of face, light touch is decreased in the left side of face, Gait: is steady. 02:25 Radiologist reports: no acute findings cp Vital Signs: 04/27 22:45 BP 146 / 80; Pulse 95; Resp 16; Temp 97.6; Pulse Ox 98% on R/A; Weight 120.2 kg; Height la1 5 ft. 8 in. (172.72 cm); 04/28 01:36 BP 142 / 94; Pulse 86; Resp 15 S; Pulse Ox 99% on R/A; Pain 0/10; jd3 04/27 22:45 Body Mass Index 40.29 (120.20 kg, 172.72 cm) la1 NIH Stroke Scale Scores: 04/27 22:46 NIHSS Score: 1 la1 23:09 NIHSS Score: 0 jd3 MDM: 23:59 Patient medically screened. cp 04/28 00:20 Differential diagnosis: CVA, bells palsy. cp 02:40 Data reviewed: vital signs, nurses notes, radiologic studies, CT scan. cp 02:40 Counseling: I had a detailed discussion with the patient and/or guardian regarding: the cp historical points, exam findings, and any diagnostic results supporting the discharge/admit diagnosis, radiology results, the need for outpatient follow up, a neurologist, to return to the emergency department if symptoms worsen or persist or if there are any questions or concerns that arise at home. ED course: VSS. Discussed results of normal head CT. Will treat for Hurricane Palsy and discharge to home for continued monitoring and refer to neurology. 04/28 00:13 Order name: CT Head Brain wo Cont cp Administered Medications: No medications were administered Disposition: 03:15 Chart complete. cp 06:17 Co-signature as Attending Physician, Noam Martini MD Available for consultation at ps1 all times. . Disposition: 04/28/19 02:40 Discharged to Home. Impression: Paresthesia of skin - left side of face, Left side facial droop. - Condition is Stable. - Discharge Instructions: Nesbitt Palsy, Adult, Paresthesia. - Prescriptions for Prednisone 20 mg Oral Tablet - take 3 tablets by ORAL route once daily for 7 days; 21 tablet. Acyclovir 800 mg Oral Tablet - take 1 tablet by ORAL route 5 times per day for 10 days; 50 tablet. Erythromycin 5 mg/gram (0.5 %) Ophthalmic Ointment - apply 1 centimeter by OPHTHALMIC route At bedtime for 7 days; 1 tube. - Work release form, Medication Reconciliation Form, Thank You Letter, Antibiotic Education, Prescription Opioid Use form. - Follow up: Cesar Delgado MD; When: 1 - 2 days; Reason: Recheck today's complaints. - Problem is new. - Symptoms are unchanged. NIH Stroke Scale - NIH Stroke Score Date: 04/27/2019 Time: 22:46 Total Score = 1 1a. Level of Consciousness (LOC) - 0(Alert) 1b. Level of Consciousness (LOC) (Year \T\ Age) - 0(Both) 1c. LOC Commands (Open \T\ Closes Eyes/Staffing Manager) - 0(Both) 2. Best Gaze (Lateral Gaze Paresis) - 0(Normal) 3. Visual Field Loss - 0(No visual loss) 4. Facial Palsy - 1(Minor Paralysis) 5a. Left Arm: Motor (10-second hold) - 0(No drift) 5b. Right Arm: Motor (10-second hold) - 0(No drift) 6a. Left Leg: Motor (5-second hold - always test supine) - 0(No drift) 6b. Right Leg: Motor (5-second hold - always test supine) - 0(No drift) 7. Limb Ataxia (finger/nose \T\ heel/cobian - test with eyes open) - 0(Absent) 8. Sensory Loss (pinprick arms/legs/face) - 0(Normal) 9. Best Language: Aphasia (description/naming/reading) - 0(No aphasia) 10. Dysarthria (speech clarity - read or repeat words) - 0(Normal) 11. Extinction and Inattention (visual/tactile/auditory/spatial/personal) - 0(No abnormality) Initials: la1 NIH Stroke Scale - NIH Stroke Score Date: 04/27/2019 Time: 23:09 Total Score = 0 1a. Level of Consciousness (LOC) - 0(Alert) 1b. Level of Consciousness (LOC) (Year \T\ Age) - 0(Both) 1c. LOC Commands (Open \T\ Closes Eyes/Staffing Manager) - 0(Both) 2. Best Gaze (Lateral Gaze Paresis) - 0(Normal) 3. Visual Field Loss - 0(No visual loss) 4. Facial Palsy - 0(Normal) 5a. Left Arm: Motor (10-second hold) - 0(No drift) 5b. Right Arm: Motor (10-second hold) - 0(No drift) 6a. Left Leg: Motor (5-second hold - always test supine) - 0(No drift) 6b. Right Leg: Motor (5-second hold - always test supine) - 0(No drift) 7. Limb Ataxia (finger/nose \T\ heel/cobian - test with eyes open) - 0(Absent) 8. Sensory Loss (pinprick arms/legs/face) - 0(Normal) 9. Best Language: Aphasia (description/naming/reading) - 0(No aphasia) 10. Dysarthria (speech clarity - read or repeat words) - 0(Normal) 11. Extinction and Inattention (visual/tactile/auditory/spatial/personal) - 0(No abnormality) Initials: jd3 Signatures: Dispatcher [employer] EDMS Magdiel Roque RN RN la1 Av Gipson PA PA cp Davies, Jonathon, RN RN jd3 Noam Martini MD MD ps1 Corrections: (The following items were deleted from the chart) 02:47 02:40 04/28/2019 02:40 Discharged to Home. Impression: Paresthesia of skin - cp left side of face. Condition is Stable. Forms are Medication Reconciliation Form, Thank You Letter, Antibiotic Education, Prescription Opioid Use. Follow up: Cesar Delgado; When: 1 - 2 days; Reason: Recheck today's complaints. Problem is new. Symptoms are unchanged. cp 02:58 02:47 04/28/2019 02:40 Discharged to Home. Impression: Paresthesia of skin - jd3 left side of face; Left side facial droop. Condition is Stable. Discharge Instructions: Nesbitt Palsy, Adult, Paresthesia. Prescriptions for Prednisone 20 mg Oral Tablet - take 3 tablets by ORAL route once daily for 7 days; 21 tablet, Acyclovir 800 mg Oral Tablet - take 1 tablet by ORAL route 5 times per day for 10 days; 50 tablet, Erythromycin 5 mg/gram (0.5 %) Ophthalmic Ointment - apply 1 centimeter by OPHTHALMIC route At bedtime for 7 days; 1 tube. and Forms are Medication Reconciliation Form, Thank You Letter, Antibiotic Education, Prescription Opioid Use. Follow up: Cesar Delgado; When: 1 - 2 days; Reason: Recheck today's complaints. Problem is new. Symptoms are unchanged. cp
--- NOTE | 2019-04-28 10:44 | RAD REPORT ---
EXAM DESCRIPTION: Head Brain Wo Cont EXAM DESCRIPTION: Head Brain Wo Cont CLINICAL HISTORY: 33 years Male left side face paresthesias COMPARISON: None TECHNIQUE: Contiguous axial images of the brain were obtained without the administration of intraven ous contrast.This exam was performed according to our departmental dose-optimization program which in cludes use of Automated Exposure Control, adjustment of the mA and/or kV according to patient size an d/or use of iterative reconstruction technique. FINDINGS: Brain: No acute intracranial hemorrhage. No acute territorial infarct. No extra-axial ella ection. No mass effect or herniation. Ventricles: Normal in size and configuration. Globes and orbits: No acute abnormality. Bones: No acute osseous finding. Paranasal sinuses: Paranasal sinuses are clear. Mastoid air cells: Well pneumatized. Soft tissues: Within normal limits IMPRESSION: No acute intracranial abnormality. Electronically signed by: Dev Wilde DO 04/28/2019 2:25 AM CDT Due to temporary technical issues with the PACS/Fluency reporting system, reports are being signed by the in house radiologist as a courtesy to ensure prompt reporting. The interpreting radiologist is f ully responsible for the content of the report.
== END 2019-04-28 02:58 | disposition home or self-care (01) ==
LOC: ER 22:28
DX: R29.810 Facial weakness (principal); F17.220 Nicotine dependence, chewing tobacco, uncomplicated
CPT/HCPCS: 70450; 99283

== ENCOUNTER 2019-08-26 16:11 | Emergency (ER) | payer BC ==
--- OUTSIDE RECORDS SUMMARY | 2019-08-26 16:12 | XMS REPORT ---
:1985 [facility] Address [address] [place] [address] [address] [place] [address] Care Team Providers Name Role Phone Unavailable Unavailable Unavailable Problems This patient has no known problems. Allergies, Adverse Reactions, Alerts This patient has no known allergies or adverse reactions. Medications This patient has no known medications. Encounters Start End Encounter Admission Attending Care Care Encounter Date/Time Date/Time Type Type Clinicians Facility Department ID 2019-04-29 2019-04-29 Emergency [facility] [id number] 15:12:00 15:12:00
[2019-08-26] MEDS ORDERED: MORPHINE 4 MG/ML SYR ONE ×2 (16:53→19:29)
[2019-08-26] MEDS ORDERED: NA CHLORIDE 0.9% 1,000 ML ONE (16:53)
[2019-08-26] MEDS ORDERED: ONDANSETRON 4 MG/2 ML VIAL ONE (16:53)
[2019-08-26 17:18] LABS: Basophils % 0.6 % (0-1.3); Hematocrit 43.7 % (39.6-49.0); Lymphocytes % 35.3 % (15.3-44.8); MPV 8.6 fL (7.6-11.3); RBC Red Blood Cell Count 4.82 M/uL (4.33-5.43)
[2019-08-26 17:38] LABS: ALT/SGPT 45 U/L (12-78); AST/SGOT 34 U/L (15-37); Albumin 3.8 g/dL (3.4-5.0); Alkaline Phosphatase 76 U/L (45-117); BUN Blood Urea Nitrogen 7 mg/dL (7-18); Bicarbonate 27 mmol/L (21-32); Bilirubin Direct 0.1 mg/dL (0-0.2); Bilirubin Total 0.4 mg/dL (0.2-1.0); Glucose Level 83 mg/dL (74-106); Lipase 41 U/L (73-393); Potassium 3.8 mmol/L (3.5-5.1); Protein, Total 7.7 g/dL (6.4-8.2); Sodium Level 139 mmol/L (136-145)
--- NOTE | 2019-08-26 18:11 | RAD REPORT ---
EXAM DESCRIPTION: CTAbdomen Pelvis W Contrast - 08/26/2019 5:50 pm CLINICAL HISTORY: Abdominal pain. abdominal pain COMPARISON: <Comparisons> TECHNIQUE: Biphasic CT imaging of the abdomen and pelvis was performed with 100 ml non-ionic IV cont rast. All CT scans are performed using dose optimization technique as appropriate and may include automated exposure control or mA/KV adjustment according to patient size. FINDINGS: The lung bases are clear. The liver, spleen, pancreas, adrenal glands and kidneys are within normal limits. No bowel obstruction, free air, free fluid or abscess. Mild sigmoid diverticulosis without diverticul itis. Appendectomy. No evidence of significant lymphadenopathy. No suspicious bony findings. IMPRESSION: No acute intra-abdominal or pelvic finding.
--- NOTE | 2019-08-26 19:09 | RAD REPORT ---
EXAM DESCRIPTION: US - Abdomen Exam Limited - 08/26/2019 7:01 pm CLINICAL HISTORY: ABD PAIN COMPARISON: Abdomen Exam Limited dated 09/24/2017; Abdomen Pelvis W Contrast dated 08/26/2019 FINDINGS: The gallbladder demonstrates no gallstones. No pericholecystic fluid or gallbladder wall t hickening. The common bile duct is normal measuring 6 mm. The liver demonstrates no findings of intrahepatic biliary dilatation. IMPRESSION: Unremarkable examination.
--- NOTE | 2019-08-26 19:22 | ER ---
Nurse's Notes [facility] Name: Yuri Puga Jr Age: 34 yrs Sex: Male : 1985 Arrival Date: 08/26/2019 Time: 16:13 Bed 7 Private MD: Fran Richardson E Diagnosis: Upper abdominal pain, unspecified Presentation: 08/26 16:20 Presenting complaint: Patient states: started having epigastric pain that goes to the rv sides yesterday. intensifies after eating heavy meal. denies nausea and vomiting. had two episodes of loose stools today. denies any fever. Transition of care: patient was not received from another setting of care. Onset of symptoms was August 25, 2019 at 08:00. Risk Assessment: Do you want to hurt yourself or someone else? Patient reports no desire to harm self or others. Initial Sepsis Screen: Does the patient meet any 2 criteria? No. Patient's initial sepsis screen is negative. Care prior to arrival: None. 16:20 Method Of Arrival: Ambulatory rv 16:20 Acuity: FERNANDA 3 rv 19:47 Initial Sepsis Screen: Does the patient have a suspected source of infection? No. lp1 Patient's initial sepsis screen is negative. Triage Assessment: 16:23 General: Appears in no apparent distress. comfortable, Behavior is calm, cooperative. rv Pain: Complains of pain in epigastric area Pain radiates to anterior aspect of left lateral abdomen and anterior aspect of right lateral abdomen. EENT: No signs and/or symptoms were reported regarding the EENT system. Neuro: Level of Consciousness is awake, alert, obeys commands, Oriented to person, place, time, situation. Cardiovascular: Patient's skin is warm and dry. Respiratory: Airway is patent. GI: Abdomen is round non-distended, Reports upper abdominal pain, diarrhea. : No signs and/or symptoms were reported regarding the genitourinary system. Derm: Skin is intact. Musculoskeletal: No signs and/or symptoms reported regarding the musculoskeletal system. Historical: - Allergies: 16:23 No Known Allergies; rv - Home Meds: 16:23 None [Active]; rv - PMHx: 16:23 None; rv - PSHx: 16:23 Appendectomy; rv - Immunization history:: Adult Immunizations up to date. - Social history:: Smoking status: Patient uses tobacco products, chewing tobacco. - Ebola Screening: : No symptoms or risks identified at this time. Screenin:20 Abuse screen: Denies threats or abuse. Denies injuries from another. Nutritional bp screening: No deficits noted. Tuberculosis screening: No symptoms or risk factors identified. Fall Risk None identified. Assessment: 16:20 General: SEE TRIAGE NOTE. bp 17:44 Reassessment: PT TO CT. bp 18:41 Reassessment: ALL CURRENT ORDERS COMPLETED, VS STABLE. bp 19:35 General: Appears in no apparent distress. lp1 19:35 Pain: Complains of pain in abdomen. Neuro: No deficits noted. Cardiovascular: Patient's lp1 skin is warm and dry. Respiratory: No deficits noted. Derm: Skin is pink, warm \T\ dry. Vital Signs: 16:22 BP 126 / 85; Pulse 100; Resp 18; Temp 99.4; Pulse Ox 100% ; Weight 126.1 kg; Height 5 rv ft. 8 in. (172.72 cm); Pain 6/10; 17:44 BP 123 / 69; Pulse 86; Resp 16; Pulse Ox 95% ; bp 18:39 BP 116 / 86; Pulse 72; Resp 16; Pulse Ox 100% ; bp 19:45 BP 137 / 80; Pulse 76; Resp 18; Pulse Ox 98% on R/A; lp1 16:22 Body Mass Index 42.27 (126.10 kg, 172.72 cm) rv ED Course: 16:13 Patient arrived in ED. mr 16:13 Fran Richardson MD is Private Physician. mr 16:20 Arm band placed on. bp 16:20 Patient has correct armband on for positive identification. Bed in low position. Call bp light in reach. Side rails up X2. Adult w/ patient. 16:22 Triage completed. rv 16:25 Se Jenkins PA is PHCP. m 16:25 Bro Patino MD is Attending Physician. [facility] 16:26 Keron Mendoza, SOCRATES is Primary Nurse. bp 16:48 Radiology exam delayed due to lab results not completed at this time. (BUN/Creatinine). kw1 17:00 Radiology exam delayed due to lab results not completed at this time. (BUN/Creatinine). kw1 17:00 Inserted saline lock: 20 gauge in right antecubital area, using aseptic technique. bp Blood collected. 17:50 CT completed. Patient tolerated procedure well. Patient moved to CT. Patient moved back ny from CT. 17:53 CT Abd/Pelvis - IV Contrast Only In Process Unspecified. EDMS 18:00 Urine collected: clean catch specimen, clear, harsha colored. jb1 19:02 US Abdomen Limited In Process Unspecified. EDMS 19:21 Josh Lazaro MD is Referral Physician. jmm 19:48 No provider procedures requiring assistance completed. lp1 19:56 IV discontinued, No redness/swelling at site. Pressure dressing applied. lp1 Administered Medications: 17:00 Drug: NS 0.9% 1000 ml Route: IV; Rate: 1 bolus; Site: right antecubital; bp 19:30 Follow up: IV Status: Completed infusion; IV Intake: 1000ml lp1 17:00 Drug: morphine 4 mg Route: IVP; Site: right antecubital; bp 17:45 Follow up: Response: Pain is decreased bp 17:00 Drug: Zofran 4 mg Route: IVP; Site: right antecubital; bp 17:45 Follow up: Response: Nausea is decreased bp 19:35 Drug: morphine 4 mg Route: IVP; Site: right antecubital; lp1 19:57 Follow up: Response: Pain is decreased; RASS: Alert and Calm (0) lp1 Intake: 19:30 IV: 1000ml; Total: 1000ml. lp1 Outcome: 19:21 Discharge ordered by . [facility] 19:57 Discharged to home ambulatory, with significant other. lp1 19:57 Condition: good 19:57 Discharge instructions given to patient, Instructed on discharge instructions, follow up and referral plans. medication usage, Demonstrated understanding of instructions, follow-up care, medications, Prescriptions given X 3. 19:58 Patient left the ED. lp1 Signatures: Dispatcher [employer] EDMS Claudy Trejo jb1 Se Jenkins PA PA jmm Rivera, Mary mr Pena, Laura, RN RN lp1 Allan Bledsoe Brian, RN RN bp Lelia Lloyd1 Bryce Briones RN RN rv Corrections: (The following items were deleted from the chart) 19:48 19:15 General: Appears uncomfortable, lp1 lp1 19:48 19:15 Pain: Complains of pain in right wrist Pain currently is 10 out of 10 on a pain lp1 scale. lp1 :48 19:15 Neuro: No deficits noted. lp1 lp1 48 19:15 Cardiovascular: Patient's skin is warm and dry. lp1 lp1 :48 19:15 Respiratory: Respiratory effort is even, unlabored, lp1 lp1 :48 19:15 Musculoskeletal: Bony deformity noted of right wrist lp1 lp1 48 19:15 Derm: Skin is pink, warm \T\ dry. lp1 lp1
--- NOTE | 2019-08-26 19:23 | EDPHYS ---
Physician Documentation [facility] Name: Yuri Puga Jr Age: 34 yrs Sex: Male : 1985 Arrival Date: 08/26/2019 Time: 16:13 Bed 7 Private MD: Fran Richardson E ED Physician Bro Patino HPI: 08/26 16:49 This 34 yrs old Male presents to ER via Ambulatory with complaints of m Abdominal Pain. 16:49 The patient presents with abdominal pain. Onset: The symptoms/episode began/occurred jmm gradually, 1 day(s) ago. The symptoms do not radiate. Associated signs and symptoms: Pertinent positives: anorexia, nausea. The symptoms are described as achy. Modifying factors: The symptoms are alleviated by nothing, the symptoms are aggravated by nothing. This is a 34 year old male with no chronic medical conditions that presents to the ED with complaints of left sided abdominal pain beginning yesterday. Pain radiates from the left side of his abdomen to the epigastric region. Denies vomiting or diarrhea but complains of nausea. History of appendectomy. . Historical: - Allergies: 16:23 No Known Allergies; rv - Home Meds: 16:23 None [Active]; rv - PMHx: 16:23 None; rv - PSHx: 16:23 Appendectomy; rv - Immunization history:: Adult Immunizations up to date. - Social history:: Smoking status: Patient uses tobacco products, chewing tobacco. - Ebola Screening: : No symptoms or risks identified at this time. ROS: 16:49 Constitutional: Negative for fever, chills, and weight loss, Cardiovascular: Negative jm for chest pain, palpitations, and edema, Respiratory: Negative for shortness of breath, cough, wheezing, and pleuritic chest pain. 16:49 Back: Negative for injury and pain, MS/Extremity: Negative for injury and deformity, Neuro: Negative for headache, weakness, numbness, tingling, and seizure. 16:49 Abdomen/GI: Positive for abdominal pain, nausea. 16:49 All other systems are negative. Exam: 16:49 Constitutional: This is a well developed, well nourished patient who is awake, alert, jmm and in no acute distress. Head/Face: atraumatic. Eyes: EOMI, no conjunctival erythema appreciated ENT: Moist Mucus Membranes Neck: Trachea midline, Supple Chest/axilla: Normal chest wall appearance and motion. Cardiovascular: Regular rate and rhythm. No edema appreciated Respiratory: Normal respirations, no respiratory distress appreciated 16:49 Abdomen/GI: Inspection: abdomen appears normal, Bowel sounds: normal, Palpation: soft, mild abdominal tenderness, in the left upper quadrant and left lower quadrant. 16:49 Back: ROM is normal. 16:49 Musculoskeletal/extremity: ROM: intact in all extremities. 16:49 Skin: Appearance: Color: normal in color. 16:49 Neuro: Orientation: is normal, Mentation: is normal, Memory: is normal. 16:49 Psych: Behavior/mood is pleasant, cooperative. Vital Signs: 16:22 BP 126 / 85; Pulse 100; Resp 18; Temp 99.4; Pulse Ox 100% ; Weight 126.1 kg; Height 5 rv ft. 8 in. (172.72 cm); Pain 6/10; 17:44 BP 123 / 69; Pulse 86; Resp 16; Pulse Ox 95% ; bp 18:39 BP 116 / 86; Pulse 72; Resp 16; Pulse Ox 100% ; bp 19:45 BP 137 / 80; Pulse 76; Resp 18; Pulse Ox 98% on R/A; lp1 16:22 Body Mass Index 42.27 (126.10 kg, 172.72 cm) rv MDM: 16:44 Patient medically screened. [facility] 19:20 Data reviewed: vital signs, nurses notes. Counseling: I had a detailed discussion with fabiano the patient and/or guardian regarding: the historical points, exam findings, and any diagnostic results supporting the discharge/admit diagnosis, lab results, radiology results, the need for outpatient follow up, to return to the emergency department if symptoms worsen or persist or if there are any questions or concerns that arise at home. ED course: Pain decreased in the ED. Patient advised to follow up with GI and otherwise given strict return precautions. Patient understood and agrees with the plan of care. . 08/26 16:46 Order name: Basic Metabolic Panel; Complete Time: 17:43 [facility] 08/26 16:46 Order name: CBC with Diff; Complete Time: 17:43 [facility] 08/26 16:46 Order name: Creatinine for Radiology; Complete Time: 17:43 [facility] 08/26 16:46 Order name: Hepatic Function; Complete Time: 17:43 [facility] 08/26 16:46 Order name: Lipase; Complete Time: 17:43 [facility] 08/26 18:10 Order name: Urine Dipstick--Ancillary (enter results) sp 08/26 16:46 Order name: IV Saline Lock; Complete Time: 17:03 [facility] 08/26 16:46 Order name: Labs collected and sent; Complete Time: 17:03 [facility] 08/26 16:46 Order name: CT Abd/Pelvis - IV Contrast Only; Complete Time: 18:21 [facility] 08/26 18:36 Order name: US Abdomen Limited; Complete Time: 19:15 [facility] 08/26 16:46 Order name: Urine Dipstick-Ancillary (obtain specimen); Complete Time: 18:04 [facility] Administered Medications: 17:00 Drug: NS 0.9% 1000 ml Route: IV; Rate: 1 bolus; Site: right antecubital; bp 19:30 Follow up: IV Status: Completed infusion; IV Intake: 1000ml lp1 17:00 Drug: morphine 4 mg Route: IVP; Site: right antecubital; bp 17:45 Follow up: Response: Pain is decreased bp 17:00 Drug: Zofran 4 mg Route: IVP; Site: right antecubital; bp 17:45 Follow up: Response: Nausea is decreased bp 19:35 Drug: morphine 4 mg Route: IVP; Site: right antecubital; lp1 19:57 Follow up: Response: Pain is decreased; RASS: Alert and Calm (0) lp1 Disposition: 20:46 Co-signature as Attending Physician, Bro Patino MD I agree with the assessment and kdr plan of care. Disposition: 08/26/19 19:21 Discharged to Home. Impression: Upper abdominal pain, unspecified. - Condition is Stable. - Discharge Instructions: Abdominal Pain, Adult. - Prescriptions for Bentyl 20 mg Oral Tablet - take 2 tablet by ORAL route every 6 hours As needed; 40 tablet. Pepcid 20 mg Oral Tablet - take 1 tablet by ORAL route every 12 hours for 10 days; 20 tablet. Ultracet 37.5- 325 mg Oral Tablet - take 1 tablet by ORAL route every 6 hours - for up to 5 days; do not exceed 8 tablets per day.; 20 tablet. - Medication Reconciliation Form, Thank You Letter, Antibiotic Education, Prescription Opioid Use form. - Follow up: Josh Lazaro MD; When: 2 - 3 days; Reason: Recheck today's complaints, Continuance of care, Re-evaluation by your physician. Signatures: Dispatcher [employer] EDMS Bro Patino MD MD kdr Mickail, Joel, PA PA jmm Pena, Laura, RN RN lp1 Keron Mendoza RN RN bp Bryce Briones RN RN rv Corrections: (The following items were deleted from the chart) 19:58 19:21 08/26/2019 19:21 Discharged to Home. Impression: Upper abdominal pain, lp1 unspecified. Condition is Stable. Forms are Medication Reconciliation Form, Thank You Letter, Antibiotic Education, Prescription Opioid Use. Follow up: Josh Lazaro; When: 2 - 3 days; Reason: Recheck today's complaints, Continuance of care, Re-evaluation by your physician. fabiano
[2019-08-26 20:07] VITALS: TEMP 99.4
[2019-08-26 20:12] VITALS: BP 137/80; O2SAT 98
[2019-08-26 20:12] LABS: Urine Blood NEGATIVE (NEG); Urine Glucose NEGATIVE (NEG); Urine Protein NEGATIVE (NEG)
== END 2019-08-26 19:58 | disposition home or self-care (01) ==
LOC: ER 16:11
DX: R10.10 Upper abdominal pain, unspecified (principal); F17.220 Nicotine dependence, chewing tobacco, uncomplicated
CPT/HCPCS: 96361; 85025; 80048; 36415; 80076; 81003; 83690; 74177; 76705; 96375; 96374; 99284; Q9967; J7030; J2405

== ENCOUNTER 2019-11-04 17:16 | Emergency (ER) | payer BC ==
--- OUTSIDE RECORDS SUMMARY | 2019-11-04 17:18 | XMS REPORT ---
:1985 [facility] Address [address] [place] [address] [address] [place] [address] Care Team Providers Name Role Phone Unavailable Unavailable Unavailable Problems This patient has no known problems. Allergies, Adverse Reactions, Alerts This patient has no known allergies or adverse reactions. Medications This patient has no known medications. Encounters Start End Encounter Admission Attending Care Care Encounter Date/Time Date/Time Type Type Clinicians Facility Department ID 2019-04-29 2019-04-29 Emergency E [facility] [id number] 15:12:00 15:12:00
[2019-11-04 18:19] LABS: Urine Bacteria <20 /HPF (NONE SEEN); Urine RBC <5 /HPF (NONE SEEN)
[2019-11-04 18:20] LABS: Urine Culture Reflex Order NOT NEEDED
--- NOTE | 2019-11-04 18:28 | ER ---
Nurse's Notes [facility] Name: Yuri Puga Jr Age: 34 yrs Sex: Male : 1985 Arrival Date: 11/04/2019 Time: 17:19 Bed 11 Private MD: Fran Richardson E Diagnosis: Low back pain Presentation: 11/04 17:36 Presenting complaint: Patient states: played basketball Sunday night with son and woke dm5 up Sunday morning with "extreme pain in lower back". Pt reports getting no relief from any over the counter medications or a TENS unit. 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 Transition of care: patient was not received from another setting of care. Onset of symptoms was October 31, 2019. Risk Assessment: Do you want to hurt yourself or someone else? Patient reports no desire to harm self or others. Initial Sepsis Screen: Does the patient meet any 2 criteria? HR > 90 bpm. No. Patient's initial sepsis screen is negative. Does the patient have a suspected source of infection? Yes: Dysuria/Frequency/Urgency/UTI. Care prior to arrival: None. 17:36 Method Of Arrival: Ambulatory dm5 17:36 Acuity: FERNANDA 3 dm5 Triage Assessment: 18:00 General: Appears in no apparent distress. Behavior is calm, cooperative. Pain: dm5 Complains of pain in lumbar area Pain currently is 8 out of 10 on a pain scale. Neuro: Level of Consciousness is awake, alert, obeys commands, Oriented to person, place, time. Cardiovascular: No deficits noted. Respiratory: No deficits noted. GI: No deficits noted. No signs and/or symptoms were reported involving the gastrointestinal system. : Reports urinary frequency. Musculoskeletal: Circulation, motion, and sensation intact. Range of motion: intact in all extremities. Historical: - Allergies: 17:41 No Known Allergies; dm5 - Home Meds: 17:41 None [Active]; dm5 - PMHx: 17:41 None; dm5 - PSHx: 17:41 Appendectomy; lip surgery; dm5 - Immunization history:: Adult Immunizations up to date. - Social history:: Patient/guardian denies using alcohol, street drugs, The patient lives with family, Smoking status: Patient denies any tobacco usage or history of. - Family history:: not pertinent. - Ebola Screening: : Patient negative for fever greater than or equal to 101.5 degrees Fahrenheit, and additional compatible Ebola Virus Disease symptoms Patient denies exposure to infectious person Patient denies travel to an Ebola-affected area in the 21 days before illness onset No symptoms or risks identified at this time. Screenin:00 Abuse screen: Denies threats or abuse. Denies injuries from another. Nutritional dm5 screening: No deficits noted. Tuberculosis screening: No symptoms or risk factors identified. Fall Risk None identified. Assessment: 18:00 Neuro: No deficits noted. dm5 Vital Signs: 17:41 BP 148 / 88; Pulse 95; Resp 18; Temp 99(TE); Pulse Ox 100% on R/A; Weight 123.83 kg; dm5 Height 5 ft. 8 in. (172.72 cm); Pain 8/10; 19:18 BP 129 / 82; Pulse 82; Resp 18; Temp 99(TE); Pulse Ox 99% on R/A; Pain 6/10; dm5 17:41 Body Mass Index 41.51 (123.83 kg, 172.72 cm) dm5 ED Course: 17:19 Patient arrived in ED. mr 17:19 Fran Richardson MD is Private Physician. mr 17:40 Triage completed. dm5 17:41 Po Tomas MD is Attending Physician. ma2 17:41 Arm band placed on right wrist. Patient placed in an exam room. dm5 18:00 Patient has correct armband on for positive identification. dm5 18:00 No provider procedures requiring assistance completed. Patient did not have IV access dm5 during this emergency room visit. 18:57 Bárbara Ernandez, RN is Primary Nurse. dm5 Administered Medications: 18:57 Drug: Tylenol #3 (300 mg-30 mg) 1 tablet Route: PO; dm5 19:18 Follow up: Response: No adverse reaction; Pain is decreased dm5 Outcome: 18:00 Discharged to home with family. dm5 18:00 Condition: good 18:00 Discharge instructions given to patient, Instructed on discharge instructions, follow up and referral plans. medication usage, Demonstrated understanding of instructions, follow-up care, medications, Prescriptions given X 3. 18:28 Discharge ordered by . ma2 19:20 Patient left the ED. dm5 Signatures: Bárbara Ernandez RN RN dm5 Edis Salome mr Po Tomas MD MD ma2
--- NOTE | 2019-11-04 18:29 | EDPHYS ---
Physician Documentation [facility] Name: Yuri Puga Jr Age: 34 yrs Sex: Male : 1985 Arrival Date: 11/04/2019 Time: 17:19 Bed 11 Private MD: Fran Richardson E ED Physician Po Tomas HPI: 11/04 18:27 This 34 yrs old Male presents to ER via Ambulatory with complaints of Back ma2 Pain. 18:27 The patient presents with pain that is acute, with no known mechanism of injury. Onset: ma2 The symptoms/episode began/occurred gradually, 1 week(s) ago. Associated signs and symptoms: Pertinent negatives: constipation, headache, nausea. The problem was sustained when bending over. Severity of symptoms: At their worst the symptoms were mild, in the emergency department the symptoms are unchanged. The patient has experienced similar episodes in the past, It is unknown whether or not the patient has had similar symptoms in the past. Historical: - Allergies: 17:41 No Known Allergies; dm5 - Home Meds: 17:41 None [Active]; dm5 - PMHx: 17:41 None; dm5 - PSHx: 17:41 Appendectomy; lip surgery; dm5 - Immunization history:: Adult Immunizations up to date. - Social history:: Patient/guardian denies using alcohol, street drugs, The patient lives with family, Smoking status: Patient denies any tobacco usage or history of. - Family history:: not pertinent. - Ebola Screening: : Patient negative for fever greater than or equal to 101.5 degrees Fahrenheit, and additional compatible Ebola Virus Disease symptoms Patient denies exposure to infectious person Patient denies travel to an Ebola-affected area in the 21 days before illness onset No symptoms or risks identified at this time. ROS: 18:27 Constitutional: Negative for fever, chills, and weight loss. ma2 18:27 All other systems are negative. Exam: 18:27 Constitutional: This is a well developed, well nourished patient who is awake, alert, ma2 and in no acute distress. Chest/axilla: Normal chest wall appearance and motion. Nontender with no deformity. No lesions are appreciated. Cardiovascular: Regular rate and rhythm with a normal S1 and S2. No gallops, murmurs, or rubs. Normal PMI, no JVD. No pulse deficits. Respiratory: Lungs have equal breath sounds bilaterally, clear to auscultation and percussion. No rales, rhonchi or wheezes noted. No increased work of breathing, no retractions or nasal flaring. Abdomen/GI: Soft, non-tender, with normal bowel sounds. No distension or tympany. No guarding or rebound. No evidence of tenderness throughout. Back: No spinal tenderness. No costovertebral tenderness. Full range of motion. 18:27 Neuro: Awake and alert, GCS 15, oriented to person, place, time, and situation. ma2 Cranial nerves II-XII grossly intact. Motor strength 5/5 in all extremities. Sensory grossly intact. Cerebellar exam normal. Normal gait. Vital Signs: 17:41 BP 148 / 88; Pulse 95; Resp 18; Temp 99(TE); Pulse Ox 100% on R/A; Weight 123.83 kg; dm5 Height 5 ft. 8 in. (172.72 cm); Pain 8/10; 19:18 BP 129 / 82; Pulse 82; Resp 18; Temp 99(TE); Pulse Ox 99% on R/A; Pain 6/10; dm5 17:41 Body Mass Index 41.51 (123.83 kg, 172.72 cm) dm5 MDM: 17:41 Patient medically screened. ma2 18:27 Differential diagnosis: spinal injury, sprain, Ureterolithiasis vertebral fracture. ma2 Data reviewed: vital signs, nurses notes. Counseling: I had a detailed discussion with the patient and/or guardian regarding: the historical points, exam findings, and any diagnostic results supporting the discharge/admit diagnosis, the presence of at least one elevated blood pressure reading (>120/80) during this emergency department visit, the need for outpatient follow up. Response to treatment: the patient's symptoms have markedly improved after treatment. 11/04 17:52 Order name: Urine Microscopic Only; Complete Time: 18:24 dm5 11/04 17:53 Order name: Urine Dipstick--Ancillary (enter results) dm5 Administered Medications: 18:57 Drug: Tylenol #3 (300 mg-30 mg) 1 tablet Route: PO; dm5 19:18 Follow up: Response: No adverse reaction; Pain is decreased dm5 Disposition: 11/04/19 18:28 Discharged to Home. Impression: Low back pain. - Condition is Stable. - Discharge Instructions: Back Pain, Adult. - Prescriptions for Tylenol- Codeine #3 300-30 mg Oral Tablet - take 2 tablet by ORAL route every 6 hours As needed; 30 tablet. Valium 10 mg Oral Tablet - take 1 tablet by ORAL route every 8 hours As needed; 20 tablet. Cyclobenzaprine 10 mg Oral Tablet - take 1 tablet by ORAL route every 8 hours As needed; 30 tablet. - Medication Reconciliation Form, Thank You Letter, Antibiotic Education, Prescription Opioid Use form. - Follow up: Private Physician; When: Tomorrow; Reason: Continuance of care. Signatures: Dispatcher [employer] EDWI Bárbara Ernandez RN RN dm5 Po Tomas MD MD ma2 Corrections: (The following items were deleted from the chart) 19: 18:28 11/04/2019 18:28 Discharged to Home. Impression: Low back pain. Condition is dm5 Stable. Forms are Medication Reconciliation Form, Thank You Letter, Antibiotic Education, Prescription Opioid Use. Follow up: Private Physician; When: Tomorrow; Reason: Continuance of care. ma2
[2019-11-04] MEDS ORDERED: CODEINE 30MG/APAP 300MG TAB ONE (18:57)
[2019-11-04 20:33] LABS: Urine Blood NEGATIVE (NEG); Urine Glucose NEGATIVE (NEG); Urine Protein NEGATIVE (NEG)
== END 2019-11-04 19:20 | disposition home or self-care (01) ==
LOC: ER 17:16
DX: M54.5 Low back pain (principal)
CPT/HCPCS: 81003; 81015; 99283

== ENCOUNTER 2022-10-20 08:14 | Day surgery (SDC) | payer BC ==
[2022-10-20] MEDS ORDERED: CEFAZOLIN SODIUM 2 GM/VIAL ONE (08:42)
[2022-10-20] MEDS ORDERED: Ringers Lactate 1,000 ML IV ONE (08:43)
[2022-10-20] MEDS ORDERED: BUPIVACAINE 0.25% PF 30 ML VIAL ONE (09:30)
[2022-10-20] MEDS ORDERED: METHYLENE BLUE 0.5% 10 ML AMP ONE (09:30)
[2022-10-20] MEDS ORDERED: LIDOCAINE 2% MPF 5 ML VIAL ONE (09:37)
[2022-10-20] MEDS ORDERED: propofoL 200 MG/20 ML VIAL IV ONE (09:37)
[2022-10-20] MEDS ORDERED: FENTANYL CITR 100 MCG/2 ML ONE (09:37)
[2022-10-20] MEDS ORDERED: ROCURONIUM 50 MG/5 ML VIAL IV ONE (09:37)
[2022-10-20] MEDS ORDERED: MIDAZOLAM HCL 2 MG/2 ML INJ ONE (09:37)
[2022-10-20] MEDS ORDERED: NS 0.9% VIAL 10 ML ONE ×2 (09:54→10:21)
[2022-10-20] MEDS ORDERED: KETOROLAC 30 MG/ML INJ ONE (10:14)
[2022-10-20] MEDS ORDERED: ONDANSETRON 4 MG/2 ML VIAL ONE (10:14)
[2022-10-20] MEDS ORDERED: MORPHINE 10 MG/ML VIAL ONE (10:21)
--- NOTE | 2022-10-20 10:41 | P.OP ---
Preoperative diagnosis: Pilonidal cyst with Sinus Postoperative diagnosis: Pilonidal cyst with Sinus Primary procedure: Wide local excision of Pilonidal cyst with Sinus @ superior hardik cleft Anesthesia: GETA + Local Estimated blood loss: <5cc Specimen: Debridement Tissue Findings: 12cm x 8 cm x 5 cm defect @ 2.5 cm from anal verge Complications: None Transferred to: Recovery Room Condition: Good
[2022-10-20] MEDS: HYDROMORPHONE HCL 2 MG/ML inj ONE ×4 (10:55→11:10)
[2022-10-20] MEDS: HYDROMORPHONE HCL 1 MG/ML INJ ONE ×2 (11:15→11:20)
[2022-10-20] MEDS: MORPHINE 4 MG/ML SYR ONE ×2 (11:36→11:41)
[2022-10-20] MEDS ORDERED: HYDROCODONE/APAP 10/325 TAB ONE (12:10)
[2022-10-20 12:16] VITALS: BP 101/75; TEMP 97.1
[2022-10-20 15:16] VITALS: O2SAT 100
--- NOTE | 2022-10-20 20:47 | OP ---
Date of Procedure: 10/20/2022 Surgeon: Graciela Paulson MD, Preoperative Diagnosis: Pilonidal cyst with sinus present at superior hardik cleft. Postoperative Diagnosis: Pilonidal cyst with sinus present at superior hardik cleft. Procedure Performed: Wide local excision of pilonidal cyst with sinus at superior cleft. Anesthesia: General endotracheal plus local with 0.25% Marcaine. Estimated Blood Loss: Less than 5 cc. Specimen: Debridement tissue. Findings: Approximately 12 cm x 8 cm x 5 cm defect approximately 2.5 cm from the anal verge. Complications: None. The patient was transferred to recovery room in good condition. Procedure In Detail: After informed consent was obtained, the patient was brought to the operating r oom, prepped and draped in usual sterile fashion, and after adequate anesthesia was achieved, I injec graciela methylene blue into a pilonidal cyst orifice consistent with a pilonidal sinus at the inferior as pect of the hardik cleft approximately 2.5 cm from the anal verge where a punctate opening was noted. There were multiple punctate openings along the anal cleft extending superiorly towards the superior cleft. Methylene blue filled some of these areas. At that time, I then injected 0.25% Marcai ne circumferentially around the entire area to be dissected. I then used a combination of sharp diss ection with a 15 blade circumferentially down to subcutaneous tissue circumferentially around the edg e of this pilonidal cyst with sinus down to subcutaneous tissues with electrocautery and dissected ou t all affected tissues including all areas affected by methylene blue and all affected cystic and pil onidal cyst disease area. There were gabo of hair encountered at multiple areas of this extending a long the cleft. These were all removed in their entirety and sent off for pathologic examinati on. The area was then copiously irrigated. Hemostasis was achieved with electrocautery. I then pac ked the wound with Vashe-soaked Kerlix, damp to dry and sterile dressing placed over top. The defect was approximately 12 cm x 8 cm x 5 cm. The patient tolerated procedure well without evidence of any complication and transferred to PACU in good condition. All counts were correct at the end of the c ase. TK/MODL Voice ID: [id number] Report ID: [id number]
== END 2022-10-20 13:10 | disposition home or self-care (01) ==
LOC: OR 08:14
PROVIDERS: ATTEND Surgery
PROC: 0JB90ZZ Excision of Buttock Subcutaneous Tissue and Fascia, Open Approach (ICD-10-PCS; principal; 2022-10-20 10:15)
DX: L05.91 Pilonidal cyst without abscess (principal); I10 Essential (primary) hypertension
CPT/HCPCS: 88304; 11770; J2704; J2001; J2250; J1170 ×2; J3010; A4216 ×2; Q9968; J7120; J2405

== ENCOUNTER → 2023-10-04 | Emergency (ER) | payer BC ==
[~2023-10-04] MED LIST: FAMOTIDINE 20 MG/2 ML VIAL IV ONE; MORPHINE 4 MG/ML SYR ONE; NA CHLORIDE 0.9% 1,000 ML ONE; ONDANSETRON 4 MG/2 ML VIAL ONE
--- OUTSIDE RECORDS SUMMARY | 2023-10-04 10:58 | XMS REPORT | Continuity of Care Document ---
Author Name Unknown Address [address] [place] [address] [facility] thconnect Address [address] [place] [address] Care Team Providers Care Ip Litigation Associate Name Role Phone Pcp, Patient Does Not Have A Primary Care Physic lei Maurilio CROWELL, Gia Green Attending Clinician Unavailab LILIAM Gilbert Attending Clinician Unavailable Shemar CHEMICAL ANALYSTDianne Attending Clinician [phone] Liliam Maher Attending Clinician [phone] Doctor Unassigned, [place] Attending Clinician U vinayak Sierra RN, [place] Attending Clinician Unavailab isreal Only, Ang Db Test Attending Clinician Unavailabl e EbGunjan Wick Attending Clinician [phone] GUNJAN DEY Attending Clinician Unavailable Lab, Adc Fam Pob I Attending Clinician Unavailab Sara Gudino Attending Clinician + [phone] SARA SINGH Attending Clinician Unavailab Meme Malhotra Attending Clinician [phone] MEME VARNER Attending Clinician Unavailable Payers Payer Name Policy Type Policy Number Effective Date Expirati on Date Source Problems Condition Name Condition Details Condition Category Status Onset Date Resolution Date Last Treatment Date Treating Clinician Comments Source No known active problems No known active problems Disease [facility] Allergies, Adverse Reactions, Alerts Allergy Name Allergy Type Status Severity Reaction(s) Onset Date Inactive Date Treating Clinician Comments Source NO KNOWN ALLERGIE S Drug Class Active [facility] Social History Social Habit Start Date Stop Date Quantity Comments Source Exposure to SARS-CoV-2 (event) 2022-04-24 00:00:00 2022-05-04 09:07:00 Not sure [facility] Sex Assigned At 1985 00:00:00 1985 00:00:00 [facility] Smoking Status Start Date Stop Date Source Tobacco smoking consumption unknown [facility] Medications Ordered Medication Name Filled Medication Name Start Date Stop Date Current Medication? Ordering Clinician Indication Dosage Frequency Signature (SIG) Comments Components Source No known medications 05-04 09:34: 28 No No known medication s [facility] No known medications 05-04 09:34: 28 No No known medication [facility] Vital Signs Vital Name Observation Time Observation Value Comments S our Systolic blood pressure 2022-05-04 14:15:00 126 mm[Hg] [facility] Diastolic blood pressure 2022-05-04 14:15:00 85 mm[Hg] [facility] Heart rate 2022-05-04 14:15:00 82 /min [facility] Body temperature 2022-05-04 14:15:00 37.28 Kate [facility] Respiratory rate 2022-05-04 14:15:00 18 /min [facility] Body height 2022-05-04 14:15:00 172.7 cm [facility] Body weight 2022-05-04 14:15:00 126.327 kg [facility] BMI 2022-05-04 14:15:00 42.35 kg/m2 [facility] Oxygen saturation in Arterial blood by Pulse oximetry 2022-05-04 14:15:00 98 /min [facility] Procedures Procedure Date / Time Performed Performing Clinicia n Source POCT MOLECULAR FLU 2022-05-04 14:27:00 [facility] AND [facility]REATMENT 2022-05-04 14:11:00 Doctor Unassigned, [place] [facility] ASSIGNMENT OF BENEFITS 2022-05-04 14:10:46 Docto r Unassigned, [place] [facility] Encounters Start Date/Time End Date/Time Encounter Type Admission Type Attending [facility] Care Facility Care Department Encounter ID Source 2022-05-05 00:00:00 2022-05-05 00:00:00 Letter (Out) Gia Thorpe [facility] [id number] [facility] 2022-05-04 09:00:00 2022-05-04 09:36:04 Outpatient R [facility] [id number] [facility] 2022-05-04 09:00:00 2022-05-04 09:36:04 Urgent Care Dianne Staton [facility] [id number] [facility] 2022-05-04 00:00:00 2022-05-04 00:00:00 Orders Only Doctor Unassigned, [place] [facility] 1.114 [id number] [facility] 2021-06-15 00:00:00 2021-06-15 00:00:00 Letter (Out) Hern[place] Sierra [facility] 1..114 [id number] [facility] 2021-06-14 16:15:49 2021-06-14 16:25:49 Laboratory Only Only, Ang Db Test Gunjan Dey [facility] [id number] [facility] 2021-06-14 16:15:00 2021-06-14 16:15:00 Outpatient R GUNJAN DEY [facility] [id number] [facility] 2020-11-19 15:08:08 2020-11-19 15:28:08 Laboratory Only Lab, [facility] Alex Sarah Sara Singh [facility] [id number] [facility] 2020-11-19 15:20:00 2020-11-19 15:20:00 Outpatient R SIMEON, [facility] [id number] [facility] 2020-11-10 15:43:21 2020-11-10 16:03:21 Laboratory Only [facility] [id number] [facility] 2020-11-10 16:00:00 2020-11-10 16:00:00 Outpatient R MEME VARNER [facility] [id number] [facility] 2019-04-29 15:12:00 2019-04-29 15:12:00 Emergency E [facility] [id number] [facility] Results Test Description Test Time Test Comments Results Result Co mments Source [facility]
[2023-10-04 13:01] LABS: Hematocrit 46.2 % (39.6-49.0); Lymphocytes % 22.2 % (15.3-44.8); MCV 90.2 fL (80-100); MPV 8.4 fL (7.6-11.3); Platelets 285 thou/uL (152-406); RBC Red Blood Cell Count 5.12 M/uL (4.33-5.43)
[2023-10-04 13:23] LABS: Albumin 3.6 g/dL (3.4-5.0); Bilirubin Total 0.4 mg/dL (0.2-1.0); Potassium 3.6 mEq/L (3.5-5.1); Protein, Total 8.8 g/dL (6.4-8.2)
[2023-10-04 14:21] LABS: Specific Gravity 1.025 (1.005-1.030); Urine Bacteria None Seen /HPF (<20); Urine Bilirubin NEGATIVE (Negative); Urine Blood Trace (Negative); Urine Clarity Clear (Clear); Urine Color Colorless (Yellow); Urine Glucose NEGATIVE (Negative); Urine Protein NEGATIVE (Negative); Urine RBC <5 /HPF (None Seen); Urine Urobilinogen Normal (Normal); Urine pH 5.5 (5.0-7.0)
--- NOTE | 2023-10-04 14:28 | RAD REPORT ---
EXAM DESCRIPTION: CT - Abdomen Pelvis W Contrast - 10/04/2023 1:38 pm CLINICAL HISTORY: ABD PAIN COMPARISON: Abdomen Pelvis W Contrast dated 08/26/2019; Abdomen Pelvis W Contrast dated 09/24/20 17 TECHNIQUE: Thin cut axial CT imaging of the abdomen and pelvis was performed following intravenous a dministration of 100 mL Isovue 300. Multiplanar reformats were generated and reviewed. All CT scans are performed using dose optimization technique as appropriate and may include automated exposure control or mA/KV adjustment according to patient size. FINDINGS: No suspicious findings in the lung bases. The liver, spleen, adrenal glands, and pancreas show no suspicious findings. Gallbladder and biliary tree are also without suspicious finding. Symmetric renal function is seen with no hydronephrosis or suspicious renal mass. No dilated bowel loops. Long segment bowel wall thickening and mild adjacent fat stranding involving the terminal ileum and most of the colon. No appreciable fistula tracts or abnormal fluid collections . No free air, free fluid or other inflammatory stranding. No hernia, mass or bulky lymphadenopathy. The urinary bladder is without significant finding. No suspicious bony findings. IMPRESSION: Long segment terminal ileum and colon bowel wall thickening and inflammatory changes as above, may suggest an infectious or inflammatory process, possibly ulcerative colitis with back wash ileitis given the distribution.
--- NOTE | 2023-10-04 14:44 | EDPHYS ---
Physician Documentation [facility] Name: Yuri Puga Jr Age: 38 yrs Sex: Male : 1985 Arrival Date: 10/04/2023 Time: 10:55 Bed 10 Private MD: Lawson Gracia B ED Physician Dong Tolentino HPI: 10/04 11:27 This 38 yrs old Male presents to ER via Ambulatory with complaints of ec2 Abdominal Pain, Nausea/Vomiting/Diarrhea. 11:27 Patient arrives today for evaluation of upper abdominal pain. Patient reports that the ec2 pain has been worsening which is what prompted evaluation. Patient reports decreased p.o. intake with associated nausea. Patient reports some diarrheal symptoms. Patient denies cough and cold symptoms.. Historical: - Allergies: 11:10 No Known Allergies; ll1 - PMHx: 11:10 None; ll1 - PSHx: 11:10 Appendectomy; p. cyst; ll1 - Immunization history:: Adult Immunizations up to date. - Social history:: Smoking status: Patient denies any tobacco usage or history of. ROS: 11:27 Constitutional: as per hpi ec2 Exam: 11:27 Constitutional: GEN: NAD Head: atraumatic Eyes: EOMI Ears: External ears are ec2 normal. CV: Tachycardia LUNGS: no respiratory distress ABD: non-distended, soft, tender in the epigastrium, no guarding, not rigid SKIN: no evidence of rashes MSK: no evidence of trauma NEURO: moves all extremities equally Vital Signs: 11:10 BP 134 / 107; Pulse 108; Resp 18; Temp 97.9; Pulse Ox 100% ; Weight 120.2 kg; Height 5 ll1 ft. 8 in. ; Pain 10/10; 14:59 BP 112 / 74; Pulse 88; Resp 16; Pulse Ox 99% on R/A; me1 11:10 Body Mass Index 40.29 (120.20 kg, 172.72 cm) ll1 11:10 Pain Scale: Adult ll1 MDM: 11:26 Patient medically screened. ec2 11:27 Data reviewed: vital signs. ED course: Patient arrives today for evaluation of ec2 abdominal pain. Examination remarkable for abdominal findings as noted above. Will obtain lab work, CT imaging, treat the patient symptoms and reassess the patient. Currently considering processes such as pancreatitis, gastroenteritis, lower suspicion for intra-abdominal infection or gallbladder pathology. . 13:14 ED course: CBC is reassuring.. ec2 13:32 ED course: Metabolic profile, lipase, nonconcerning, flu is negative. . ec2 14:34 ED course: Urine is noninfectious appearing. CT scan shows colitis, possible ulcerative ec2 colitis. On reassessment patient with improvement in symptoms, will discharge home to have follow-up with primary care as well as GI. Instructed on [id number] medications and continued hydration, patient without sequela or complications from the colitis to warrant inpatient admission at this time.. 10/04 11:26 Order name: CBC with Diff; Complete Time: 13:14 ec2 10/04 11:26 Order name: CMP; Complete Time: 13:31 ec2 10/04 11:26 Order name: Lipase; Complete Time: 13:31 ec2 10/04 11:26 Order name: Urinalysis w/ reflexes; Complete Time: 14:34 ec2 10/04 11:34 Order name: COVID-19 SARS RT PCR; Complete Time: 14:34 ec2 10/04 11:34 Order name: Influenza Screen (a \T\ B); Complete Time: 13:31 ec2 10/04 11:26 Order name: CT Abd/Pelvis - IV Contrast Only; Complete Time: 14:34 ec2 10/04 11:26 Order name: IV Saline Lock; Complete Time: 12:52 ec2 10/04 11:26 Order name: Labs collected and sent; Complete Time: 12:52 ec2 Administered Medications: 13:06 Drug: NS 0.9% IV 1000 ml IV at 1 bolus Per protocol; 1000 mL bolus Route: IV; Rate: 1 me1 bolus; Site: right antecubital; 15:01 Follow up: IV Status: Completed infusion me1 13:06 Drug: Famotidine IVP 20 mg IVP once; dilute with 10 mL 0.9% NaCl; give over 2 minutes me1 Route: IVP; Site: right antecubital; 14:16 Follow up: Response: No adverse reaction me1 13:06 Drug: Ondansetron IVP 4 mg IVP once; over 2 minutes Route: IVP; Site: right antecubital;me1 14:16 Follow up: Response: No adverse reaction; Marked relief of symptoms me1 13:06 Drug: morphine IVP or IV 4 mg IVP once over 4 mins Route: IVP; Infused Over: 4 mins; me1 Site: right antecubital; 14:17 Follow up: Response: No adverse reaction me1 Disposition Summary: 10/04/23 14:44 Discharge Ordered Notes: Location: Home ec2 Condition: Stable ec2 Diagnosis - Indeterminate colitis ec2 Followup: ec2 - With: Pablo Boothe MD - When: - Reason: Recheck today's complaints Discharge Instructions: - Discharge Summary Sheet ec2 - Colitis ec2 Forms: - Medication Reconciliation Form ec2 - Thank You Letter ec2 - Antibiotic Education ec2 - Prescription Opioid Use ec2 - Patient Portal Instructions ec2 - Leadership Thank You Letter ec2 Prescriptions: - Zofran 4 mg Oral Tablet - take 1 tablet ORAL route every 12 hours As needed; 20 tablet; Refills: 0, ec2 Product Selection Permitted - dicyclomine 10 mg Oral capsule - take 1 capsule ORAL route 3 times per day; 20 capsule; Refills: 0, Product ec2 Selection Permitted Signatures: Dispatcher [employer] Larry Bennett RN RN ll1 Shanthi Juan RN RN me1 Dong Tolentino MD MD ec2 Corrections: (The following items were deleted from the chart) 14:43 14:34 ED course: Urine is noninfectious appearing. CT scan shows colitis, possible ec2 ulcerative colitis. . ec2
--- NOTE | 2023-10-04 14:44 | ER ---
Nurse's Notes [facility] Name: Yuri Puga Jr Age: 38 yrs Sex: Male : 1985 Arrival Date: 10/04/2023 Time: 10:55 Bed 10 Private MD: Lawson Gracia B Diagnosis: Indeterminate colitis Presentation: 10/04 11:10 Chief complaint: Patient states: Upper abdominal pain since Sunday. Fever 103 at home. ll1 +N/V/D. Coronavirus screen: Vaccine status: Patient reports receiving the 2nd dose of the covid vaccine. Client denies travel out of the [place] in the last 14 days. Ebola Screen: Patient denies travel to an Ebola-affected area in the 21 days before illness onset. Initial Sepsis Screen: Does the patient meet any 2 criteria? No. Patient's initial sepsis screen is negative. Does the patient have a suspected source of infection? Yes: Productive cough/pneumonia. Risk Assessment: Do you want to hurt yourself or someone else? Patient reports no desire to harm self or others. Onset of symptoms was October 02, 2023. 11:10 Method Of Arrival: Ambulatory [facility] 11:10 Acuity: FERNANDA 3 ll1 Triage Assessment: 11:12 General: Appears uncomfortable, ill, Behavior is calm, cooperative, appropriate for 2 age. General: Reports chills for fever for feeling ill for fatigue for. Pain: Complains of pain in abdomen Pain currently is 10 out of 10 on a pain scale. Quality of pain is described as aching, throbbing. GI: Reports upper abdominal pain, diarrhea, nausea, vomiting. Historical: - Allergies: 11:10 No Known Allergies; ll1 - PMHx: 11:10 None; ll1 - PSHx: 11:10 Appendectomy; p. cyst; ll1 - Immunization history:: Adult Immunizations up to date. - Social history:: Smoking status: Patient denies any tobacco usage or history of. Screenin:07 [facility] ED Fall Risk Assessment (Adult) History of falling in the last 3 months, me1 including since admission No falls in past 3 months (0 pts) Confusion or Disorientation No (0 pts) Intoxicated or Sedated No (0 pts) Impaired Gait No (0 pts) Mobility Assist Device Used No (0 pt) Altered Elimination No (0 pt) Score/Fall Risk Level 0 - 2 = Low Risk Maintained a safe environment, Provided non-skid footwear, Hourly rounding (assess needs \T\ fall precautionary measures) done. Abuse screen: Denies threats or abuse. Nutritional screening: No deficits noted. Tuberculosis screening: No symptoms or risk factors identified. Assessment: 13:07 General: Appears uncomfortable, well groomed, well developed, well nourished, Behavior me1 is calm, cooperative, appropriate for age, Reports Upper abdominal pain since Sunday. Fever 103 at home. +N/V/D. Pain: Complains of pain in epigastric area Pain does not radiate. Pain currently is 9 out of 10 on a pain scale. Quality of pain is described as dull, Pain began gradually, 2-3 days ago. Is continuous. Neuro: Level of Consciousness is awake, alert, obeys commands, Oriented to person, place, time, situation, Appropriate for age. Cardiovascular: Capillary refill < 3 seconds Patient's skin is warm and dry. Respiratory: Airway is patent Respiratory effort is even, unlabored, Respiratory pattern is regular, symmetrical. GI: Abdomen is obese, Bowel sounds present X 4 quads. Abd is soft X 4 quads Reports lower abdominal pain, diarrhea, nausea, vomiting, since 3 days ago. Vital Signs: 11:10 BP 134 / 107; Pulse 108; Resp 18; Temp 97.9; Pulse Ox 100% ; Weight 120.2 kg; Height 5 ll1 ft. 8 in. ; Pain 10/10; 14:59 BP 112 / 74; Pulse 88; Resp 16; Pulse Ox 99% on R/A; me1 11:10 Body Mass Index 40.29 (120.20 kg, 172.72 cm) ll1 11:10 Pain Scale: Adult ll1 ED Course: 10:56 Patient arrived in ED. rg4 10:56 Lawson Gracia MD is Private Physician. rg4 11:07 Dong Tolentino MD is Attending Physician. ec2 11:10 Arm band placed on. ll1 11:11 Triage completed. ll1 12:51 Shanthi Juan, SOCRATES is Primary Nurse. me1 12:52 Inserted saline lock: 20 gauge in right antecubital area, using aseptic technique. iw Blood collected. 13:06 Influenza Screen (a \T\ B) Sent. me1 13:06 COVID-19 SARS RT PCR Sent. me1 13:07 Patient has correct armband on for positive identification. Bed in low position. Call me1 light in reach. Side rails up X 1. Provided Education on: POC. Verbalized understanding. . 13:07 No provider procedures requiring assistance completed. me1 13:40 CT Abd/Pelvis - IV Contrast Only In Process Unspecified. EDMS 14:43 Pablo Boothe MD is Referral Physician. ec2 14:58 IV discontinued, intact, bleeding controlled, No redness/swelling at site. Pressure me1 dressing applied. Administered Medications: 13:06 Drug: NS 0.9% IV 1000 ml IV at 1 bolus Per protocol; 1000 mL bolus Route: IV; Rate: 1 me1 bolus; Site: right antecubital; 15:01 Follow up: IV Status: Completed infusion me1 13:06 Drug: Famotidine IVP 20 mg IVP once; dilute with 10 mL 0.9% NaCl; give over 2 minutes me1 Route: IVP; Site: right antecubital; 14:16 Follow up: Response: No adverse reaction me1 13:06 Drug: Ondansetron IVP 4 mg IVP once; over 2 minutes Route: IVP; Site: right antecubital;me1 14:16 Follow up: Response: No adverse reaction; Marked relief of symptoms me1 13:06 Drug: morphine IVP or IV 4 mg IVP once over 4 mins Route: IVP; Infused Over: 4 mins; me1 Site: right antecubital; 14:17 Follow up: Response: No adverse reaction me1 Medication: 13:07 VIS not applicable for this client. me1 Outcome: 14:44 Discharge ordered by . ec2 15:00 Discharged to home ambulatory, me1 15:00 Condition: stable 15:00 Discharge instructions given to patient, Instructed on discharge instructions, follow up and referral plans. medication usage, Demonstrated understanding of instructions, follow-up care, medications, Prescriptions given X 2, 15:00 Patient left the ED. me1 Signatures: Dispatcher [employer] EDMS Katie Pla RN RN iw Dione Lion rg4 Larry Michel RN RN 1 Shanthi Juan RN RN me1 Dong Tolentino MD MD ec2 Corrections: (The following items were deleted from the chart) 13:07 11:10 Chief complaint: Patient states: Upper abdominal pain since Sunday. Fever 103 at me1 home. +N/V/D. ll1
[2023-10-04 15:54] VITALS: TEMP 97.9
[2023-10-04 15:59] VITALS: BP 112/74; O2SAT 99
== END ==
LOC: ER 10:55
DX: K52.3 Indeterminate colitis (principal); Z11.52 Encounter for screening for COVID-19
CPT/HCPCS: 96361; 85025; 81001; 36415; 83690; 80053; 87635; 87804 ×2; 74177; 96375; 96374; 99284; Q9967; J2405; J7030

== ENCOUNTER 2024-03-18 14:55 | Emergency (ER) | payer BC ==
--- OUTSIDE RECORDS SUMMARY | 2024-03-18 14:58 | XMS REPORT | Continuity of Care Document ---
Author Name Unknown Address [address] [facility] [address] [place] [address] [facility] thconnect Address [address] [facility] [address] [place] [address] Care Team Providers Care Military Pilot Name Role Phone Pcp, Patient Does Not Have A Primary Care Physic lei Maurilio CROWELL, Gia Green Attending Clinician Unavailab LILIAM Gilbert Attending Clinician Unavailable Shemar CNC MECHANICDianne Attending Clinician [phone] Liliam Maher Attending Clinician [phone] Doctor Unassigned, [place] Attending Clinician U vinayak Sierra RN, Hernesto Attending Clinician Unavailab isreal Only, Ang Db Test Attending Clinician Unavailabl e EbGunjan Wick Attending Clinician [phone] GUNJAN MISTRY Attending Clinician Unavailable Lab, Adc Fam Pob I Attending Clinician Unavailab Sara Gudino Attending Clinician + [phone] SARA SINGH Attending Clinician Unavailab Meme Malhotra Attending Clinician [phone] MEME VARNER Attending Clinician Unavailable Payers Payer Name Policy Type Policy Number Effective Date Expirati on Date Source Problems Condition Name Condition Details Condition Category Status Onset Date Resolution Date Last Treatment Date Treating Clinician Comments Source No known active problems No known active problems Disease [facility] Allergies, Adverse Reactions, Alerts Allergy Name Allergy Type Status Severity Reaction(s) Onset Date Inactive Date Treating Clinician Comments Source NO KNOWN ALLERGIE S Drug Class Active [facility] Social History Social Habit Start Date Stop Date Quantity Comments Source Exposure to SARS-CoV-2 (event) 2022-04-24 00:00:00 2022-05-04 09:07:00 Not sure [facility] Sex Assigned At 1985 00:00:00 1985 00:00:00 [facility] Smoking Status Start Date Stop Date Source Tobacco smoking consumption unknown [facility] Medications Ordered Medication Name Filled Medication Name Start Date Stop Date Current Medication? Ordering Clinician Indication Dosage Frequency Signature (SIG) Comments Components Source No known medications 05-04 09:34: 28 No No known medication s [facility] Vital Signs Vital Name Observation Time Observation Value Comments S delores Systolic blood pressure 2022-05-04 14:15:00 126 mm[Hg] [facility] Diastolic blood pressure 2022-05-04 14:15:00 85 mm[Hg] [facility] Heart rate 2022-05-04 14:15:00 82 /min [facility] Body temperature 2022-05-04 14:15:00 37.28 Kate [facility] Respiratory rate 2022-05-04 14:15:00 18 /min [facility] Body height 2022-05-04 14:15:00 172.7 cm [facility] Body weight 2022-05-04 14:15:00 126.327 kg [facility] BMI 2022-05-04 14:15:00 42.35 kg/m2 [facility] Oxygen saturation in Arterial blood by Pulse oximetry 2022-05-04 14:15:00 98 /min [facility] Procedures Procedure Date / Time Performed Performing Clinicia n Source POCT MOLECULAR FLU 2022-05-04 14:27:00 [facility]REFUS[facility] FOR DIAGNOSIS AND TREATMENT 2022-05-04 14:11:00 Doctor Unassigned, [place] [facility] ASSIGNMENT OF BENEFITS 2022-05-04 14:10:46 Docto r Unassigned, [place] [facility] Encounters Start Date/Time End Date/Time Encounter Type Admission Type Attending Clinicians Care Facility Care Department Encounter ID Source 2022-05-05 00:00:00 2022-05-05 00:00:00 Letter (Out) Gia Thorpe [facility] 1.84.114 350.1.13.10 4.2.7.2.686 [id number] [facility] 2022-05-04 09:00:00 2022-05-04 09:36:04 Outpatient Jensen RITCHIE [facility] [id number] [facility] 2022-05-04 09:00:00 2022-05-04 09:36:04 Urgent Care Dianne Staton [facility] 1.840.114 350.1.13.10 4.2.7.2.686 [id number] [facility] 2022-05-04 00:00:00 2022-05-04 00:00:00 Orders Only Doctor Unassigned, [place] [facility] 1.84.114 350.1.13.10 4.2.7.2.686 [id number] [facility] 2021-06-15 00:00:00 2021-06-15 00:00:00 Letter (Out) Hernesto Sierra [facility] 1.84.114 350.1.13.10 4.2.7.2.686 [id number] [facility] 2021-06-14 16:15:49 2021-06-14 16:25:49 Laboratory Only Only, Ang Db Miguel Angel Mistry [facility] Building 1.84.114 350.1.13.10 4.2.7.2.686 [id number] [facility] 2021-06-14 16:15:00 2021-06-14 16:15:00 Outpatient R GUNJAN MISTRY [facility] [id number] [facility] 2020-11-19 15:08:08 2020-11-19 15:28:08 Laboratory Only Lab, [facility] Yrn Sandoval I Sara Singh [facility] One ..840.114 350.1.13.10 4.2.7.2.686 [id number] [facility] 2020-11-19 15:20:00 2020-11-19 15:20:00 Outpatient SARA CASTELLANO [facility] [id number] [facility] 2020-11-10 15:43:21 2020-11-10 16:03:21 Laboratory Only Lab, [facility] Lori Xenia Alfarothia [facility] One ..840.114 350.1.13.10 4.2.7.2.686 [id number] [facility] 2020-11-10 16:00:00 2020-11-10 16:00:00 Outpatient MEME MEYER [facility] [id number] [facility] 2019-04-29 15:12:00 2019-04-29 15:12:00 Emergency E [id number] [facility] Results Test Description Test Time Test Comments Results Result Co mments Source [facility]
[2024-03-18 16:00] LABS: Absolute Basophils 0.1 K/uL (0-0.5); Absolute Lymphocytes (CBC) 2.8 K/uL (0.7-4.9); Absolute Monocytes 1.4 K/uL (0.1-1.3); Absolute Neutrophil 10.6 K/uL (1.8-8.0); Basophils % 0.7 % (0-1.3); Eosinophils % 0.3 % (0-4.4); Hematocrit 47.6 % (39.6-49.0); Hemoglobin 15.7 g/dL (13.6-17.9); MCH 30.3 pg (27.0-35.0); MCHC 33.1 g/dL (32.0-36.0); MCV 91.7 fL (80-100); MPV 8.5 fL (7.6-11.3); Monocytes % 9.1 % (3.3-12.3); Neutrophils % 70.9 % (41.7-73.7); Platelets 304 thou/uL (152-406); RBC Red Blood Cell Count 5.19 M/uL (4.33-5.43); Red Cell Distribution Width 14.4 % (12.1-15.2)
[2024-03-18 16:03] LABS: Specific Gravity 1.024 (1.005-1.030); Sqamous Epithelial <5 /HPF (None Seen); Urine Bacteria <20 /HPF (<20); Urine Bilirubin NEGATIVE (Negative); Urine Blood Trace (Negative); Urine Clarity Turbid (Clear); Urine Color Yellow (Yellow); Urine Culture Reflex Order NOT NEEDED; Urine Glucose NEGATIVE (Negative); Urine Ketones NEGATIVE (Negative); Urine Microscopic Reflex YN ORDER UMIC; Urine Mucus Slight /HPF (None Seen); Urine Nitrite NEGATIVE (Negative); Urine Protein TRACE (Negative); Urine RBC <5 /HPF (None Seen); Urine Urobilinogen Normal (Normal); Urine WBC <5 /HPF (<5); Urine pH 5.5 (5.0-7.0)
[2024-03-18 16:11] LABS: PT Prothrombin Time 11.9 SECONDS (9.5-12.5); Protime INR 1.08
[2024-03-18 16:19] LABS: ALT/SGPT 48 U/L (16-61); AST/SGOT 16 U/L (15-37); Albumin 3.9 g/dL (3.4-5.0); Alkaline Phosphatase 81 U/L (45-117); Anion Gap 10.4 mEq/L (5.0-15.0); BUN Blood Urea Nitrogen 13 mg/dL (7-18); Bicarbonate 26 mEq/L (21-32); Bilirubin Direct < 0.2 mg/dL (0-0.2); Bilirubin Indirect, Calculated 0.2 mg/dL (0.2-0.8); Bilirubin Total 0.4 mg/dL (0.2-1.0); Creatine Phosphokinase 175 U/L (39-308); Globulin 4.1 g/dL (2.3-3.5); Glomerular Filtration Rate 65 ml/min (=/>90); Glucose Level 101 mg/dL (74-106); Magnesium 2.4 mg/dL (1.6-2.4); Potassium 3.4 mEq/L (3.5-5.1); Sodium Level 136 mEq/L (136-145); Troponin High Sensitivity 17.4 pg/mL (<58.9)
--- NOTE | 2024-03-18 16:41 | RAD REPORT ---
EXAM DESCRIPTION: Nirav Single View03/18/2024 4:12 pm CLINICAL HISTORY: Palpitations COMPARISON: 2018 FINDINGS: The lungs appear clear of acute infiltrate. The heart is normal size IMPRESSION: No acute abnormalities displayed
--- NOTE | 2024-03-18 16:57 | EDPHYS ---
Physician Documentation [facility] Name: Yuri Puga Jr Age: 38 yrs Sex: Male : 1985 Arrival Date: 03/18/2024 Time: 14:55 Bed 23 Private MD: ED Physician Av Thibodeaux HPI: 03/19 00:11 This 38 yrs old Male presents to ER via EMS with complaints of Near syncope. kb 00:11 Patient is a 38-year-old male who presents for near syncope, palpitations that occurred kb while working outdoors. States he tried to stay hydrated but has been out in the heat for several hours today. Denies chest pain, shortness of breath.. Historical: - Allergies: 03/18 15:06 No Known Allergies; ap3 - Home Meds: 15:06 None [Active]; ap3 - PMHx: 15:06 None; ap3 - PSHx: 15:06 Appendectomy; p. cyst; ap3 - Immunization history:: Client reports having NOT received the Covid vaccine. - Infectious Disease History:: Denies. - Social history:: Smoking status: Patient reports use of chewing tobacco. ROS: 03/19 00:11 Constitutional: As per HPI kb Exam: 03/18 16:57 Constitutional: This is a well developed, well nourished patient who is awake, alert, kb and in no acute distress. Head/Face: Normocephalic, atraumatic. ENT: Moist Mucous membranes Cardiovascular: tachycardic rate Respiratory: Respirations even and unlabored. No increased work of breathing. Talking in full sentences Abdomen/GI: Soft, non-tender. No distention Skin: Warm, dry with normal turgor. Normal color. MS/ Extremity: Pulses equal, no cyanosis. Neurovascular intact. Full, normal range of motion. Neuro: Awake and alert, GCS 15, oriented to person, place, time, and situation. Moves all extremities. Normal gait. ECG was reviewed by the Attending Physician. Vital Signs: 15:04 Weight 124.74 kg; Height 5 ft. 8 in. ; ap3 15:54 BP 130 / 75; Pulse 105; Resp 18 S; Temp 97.7; Pulse Ox 97% ; Weight 124.74 kg; Height 5 as6 ft. 8 in. ; Pain 7/10; 16:47 BP 121 / 74; Pulse 96; Resp 18; Pulse Ox 97% ; as6 17:28 BP 118 / 68; Pulse 96; Resp 17; Pulse Ox 96% ; as6 15:54 Body Mass Index 41.81 (124.74 kg, 172.72 cm) as6 15:54 Pain Scale: Adult as6 MDM: 14:58 Patient medically screened. kb 03/19 00:12 Differential Diagnosis: cardiac arrhythmia, idiopathic syncope, Heat exhaustion. Data kb reviewed: vital signs, nurses notes. Historians other than the Patient: EMS: [email or web address]. Counseling: I had a detailed discussion with the patient and/or guardian regarding the historical points, exam findings, and any diagnostic results supporting the discharge/admit diagnosis, lab results, radiology results, the need for outpatient follow up, a family practitioner, to return to the emergency department if symptoms worsen or persist or if there are any questions or concerns that arise at home. Response to treatment: the patient's symptoms have resolved after treatment. 03/18 14:59 Order name: Basic Metabolic Panel; Complete Time: 16:20 kb 03/18 14:59 Order name: CBC with Diff; Complete Time: 16:04 kb 03/18 14:59 Order name: Hepatic Function; Complete Time: 16:20 kb 03/18 14:59 Order name: Magnesium; Complete Time: 16:20 kb 03/18 14:59 Order name: Protime (+inr); Complete Time: 16:19 kb 03/18 14:59 Order name: Ptt, Activated; Complete Time: 16:19 kb 03/18 14:59 Order name: Troponin High Sensitivity; Complete Time: 16:20 kb 03/18 14:59 Order name: Urinalysis w/ reflexes; Complete Time: 16:04 kb 03/18 14:59 Order name: CPK; Complete Time: 16:20 kb 03/18 14:59 Order name: Chest Single View XRAY; Complete Time: 16:45 kb 03/18 14:59 Order name: Cardiac monitoring; Complete Time: 15:53 kb 03/18 14:59 Order name: EKG - Nurse/Tech; Complete Time: 15:53 kb 03/18 14:59 Order name: IV Saline Lock; Complete Time: 15:30 kb 03/18 14:59 Order name: Labs collected and sent; Complete Time: 15:53 kb 03/18 14:59 Order name: NPO; Complete Time: 15:53 kb 03/18 14:59 Order name: O2 Per Protocol; Complete Time: 15:53 kb 03/18 14:59 Order name: O2 Sat Monitoring; Complete Time: 15:53 kb EC/04 16:57 Rate is 105 beats/min. Rhythm is regular. QRS [place] is Normal. NM interval is normal at kb 140 msec. QRS interval is normal at 80 msec. QT interval is normal at 422 msec. Administered Medications: No medications were administered Disposition Summary: 03/18/24 16:56 Discharge Ordered Notes: Location: Home kb Condition: Stable kb Diagnosis - Syncope Near kb Followup: kb - With: Emergency Department - When: As needed - Reason: Worsening of condition Followup: kb - With: Private Physician - When: 2 - 3 days - Reason: Recheck today's complaints, Continuance of care, Re-evaluation by your physician Discharge Instructions: - Discharge Summary Sheet kb - Near-Syncope, [id number]-ff-[id number] kb - Heat Exhaustion kb - Preventing Heat Exhaustion, Adult kb Forms: - Work release form kb - Medication Reconciliation Form kb - Antibiotic Education kb - Prescription Opioid Use kb - Patient Portal Instructions kb - Leadership Thank You Letter kb Signatures: Dispatcher [employer] EDLesia Mancia, LINUX UNIX SYSTEM ADMINISTRATOR-C LINUX UNIX SYSTEM ADMINISTRATOR-Janie Arellano RN RN ap3 Corrections: (The following items were deleted from the chart) 14:59 14:59 BASIC METABOLIC PANEL+C.LAB.BRZ ordered. EDMS EDMS 14:59 14:59 CBC+H.LAB.BRZ ordered. EDMS EDMS 14:59 14:59 HEPATIC FUNCTION+C.LAB.BRZ ordered. EDMS EDMS 14:59 14:59 MAGNESIUM+C.LAB.BRZ ordered. EDMS EDMS 14:59 14:59 PROTIME (+INR)+COAG.LAB.BRZ ordered. EDMS EDMS 14:59 14:59 PTT, ACTIVATED+COAG.LAB.BRZ ordered. EDMS EDMS 14:59 14:59 Troponin High Sensitivity+C.LAB.BRZ ordered. EDMS EDMS 14:59 14:59 Urinalysis+U.LAB.BRZ ordered. EDMS EDMS 14:59 14:59 CREATINE PHOSPHOKINASE+C.LAB.BRZ ordered. EDMS EDMS
--- NOTE | 2024-03-18 16:57 | ER ---
Nurse's Notes [facility] Name: Yuri Puga Jr Age: 38 yrs Sex: Male : 1985 Arrival Date: 03/18/2024 Time: 14:55 Bed 23 Private MD: Diagnosis: Syncope Near Presentation: 03/18 15:04 Chief complaint: EMS states: patient was at work, when he was working outside and got ap3 hot. patient was evaluated for nausea by [facility] EMS on scene. Coronavirus screen: At this time, the client does not indicate any symptoms associated with coronavirus-19. Ebola Screen: No symptoms or risks identified at this time. Risk Assessment: Do you want to hurt yourself or someone else? Patient reports no desire to harm self or others. Onset of symptoms was March 18, 2024. 15:04 Method Of Arrival: EMS: [facility] [place] [facility] ap3 15:04 Acuity: FERNANDA 3 ap3 15:07 Care prior to arrival: Medication(s) given: Normal saline infusion, 1000 mL, zofran 4 ap3 mg, IV initiated. 20 GA. 16:00 Initial Sepsis Screen: Does the patient meet any 2 criteria? No. Patient's initial as6 sepsis screen is negative. Does the patient have a suspected source of infection? No. Patient's initial sepsis screen is negative. Triage Assessment: 15:06 General: Appears in no apparent distress. Behavior is calm, cooperative, appropriate ap3 for age. Pain: Denies pain. Neuro: Level of Consciousness is awake, alert, obeys commands, Oriented to person, place, time, situation. Cardiovascular: Patient's skin is warm and dry. Respiratory: Airway is patent Respiratory effort is even, unlabored, Respiratory pattern is regular, symmetrical. GI: Reports nausea. Historical: - Allergies: 15:06 No Known Allergies; ap3 - Home Meds: 15:06 None [Active]; ap3 - PMHx: 15:06 None; ap3 - PSHx: 15:06 Appendectomy; p. cyst; ap3 - Immunization history:: Client reports having NOT received the Covid vaccine. - Infectious Disease History:: Denies. - Social history:: Smoking status: Patient reports use of chewing tobacco. Screenin:07 Abuse screen: Denies threats or abuse. Nutritional screening: No deficits noted. ap3 Tuberculosis screening: No symptoms or risk factors identified. 16:01 [facility] ED Fall Risk Assessment (Adult) History of falling in the last 3 months, as6 including since admission No falls in past 3 months (0 pts) Confusion or Disorientation No (0 pts) Intoxicated or Sedated No (0 pts) Impaired Gait No (0 pts) Mobility Assist Device Used No (0 pt) Altered Elimination No (0 pt) Score/Fall Risk Level 0 - 2 = Low Risk Oriented to surroundings, Maintained a safe environment, Educated pt \T\ family on fall prevention, incl call for assistance when getting out of bed, Assessed \T\ reinforced patient's understanding of fall precautions. Assessment: 15:59 General: Appears in no apparent distress. Behavior is calm, cooperative. Pain: as6 Complains of pain in right leg and left leg. Neuro: Level of Consciousness is awake, alert, obeys commands, Oriented to person, place, time, situation, Reports dizziness. Cardiovascular: Capillary refill. Respiratory: Respiratory effort is even, unlabored, Respiratory pattern is regular, symmetrical. GI: Reports nausea. Derm: Skin is moist. Vital Signs: 15:04 Weight 124.74 kg; Height 5 ft. 8 in. ; ap3 15:54 BP 130 / 75; Pulse 105; Resp 18 S; Temp 97.7; Pulse Ox 97% ; Weight 124.74 kg; Height 5 as6 ft. 8 in. ; Pain 7/10; 16:47 BP 121 / 74; Pulse 96; Resp 18; Pulse Ox 97% ; as6 17:28 BP 118 / 68; Pulse 96; Resp 17; Pulse Ox 96% ; as6 15:54 Body Mass Index 41.81 (124.74 kg, 172.72 cm) as6 15:54 Pain Scale: Adult as6 ED Course: 14:57 Patient arrived in ED. kb 14:57 [facility] Klein [facility]C [facility] kb 14:57 Av Thibodeaux MD is Attending Physician. kb 15:06 Triage completed. ap3 15:07 Arm band placed on right wrist. ap3 15:30 Bogdan Grant, SOCRATES is Primary Nurse. as6 15:37 Maintain EMS IV. Dressing intact. Good blood return noted. Site clean \T\ dry. Gauge \T\ as 6 site: 20g RAC. 15:53 CPK Sent. as6 15:53 Basic Metabolic Panel Sent. as6 15:53 CBC with Diff Sent. as6 15:53 Hepatic Function Sent. as6 15:53 Magnesium Sent. as6 15:53 Protime (+inr) Sent. as6 15:53 Ptt, Activated Sent. as6 15:54 Troponin High Sensitivity Sent. as6 15:54 Urinalysis w/ reflexes Sent. as6 16:01 Placed in gown. Bed in low position. Call light in reach. Side rails up X 1. Adult w/ as6 patient. Client placed on continuous cardiac and pulse oximetry monitoring. NIBP monitoring applied. air sampling and monitoring on. 16:14 Chest Single View XRAY In Process Unspecified. EDMS 16:48 No provider procedures requiring assistance completed. as6 17:27 IV discontinued, intact, bleeding controlled, No redness/swelling at site. Pressure as6 dressing applied. 17:28 Provided Education on: how to stay hydrated . as6 Administered Medications: No medications were administered Medication: 16:01 VIS not applicable for this client. as6 Outcome: 16:56 Discharge ordered by . dre 17:27 Discharged to home ambulatory, with significant other, as6 17:27 Condition: stable 17:27 Discharge instructions given to patient, Instructed on discharge instructions, follow up and referral plans. Demonstrated understanding of instructions, follow-up care, 17:28 Patient left the ED. as6 Signatures: Dispatcher [employer] EDLesia Mancia FNP-C FNP-Ckb Prokisch, Amanda RN SOCRATES ap3 Bogdan Grant, RN RN as6
[2024-03-18 18:28] VITALS: BP 118/68; TEMP 97.7; O2SAT 96
--- NOTE | 2024-03-19 16:34 | EKG ---
Test Date: 2024-03-18 Test Time: 15:44:57 Motor Tune Up Specialist: MEASUREMENT RESULTS: Intervals: Rate: 105 PA: 140 QRSD: 80 QT: 320 QTc: 422 [place]: P: 41 PA: 140 QRS: 88 T: 27 INTERPRETIVE STATEMENTS: Sinus tachycardia Otherwise normal ECG Compared to ECG 01/06/2019 19:34:38 Sinus rhythm no longer present Electronically Signed On 03-19-24 16:32:27 CDT by Calvin Tate
== END 2024-03-18 17:28 | disposition home or self-care (01) ==
LOC: ER 14:55
DX: R55 Syncope and collapse (principal); F17.220 Nicotine dependence, chewing tobacco, uncomplicated
CPT/HCPCS: 36415; 71045; 80048; 80076; 81001; 82550; 83735; 84484; 85025; 85610; 85730; 93005; 99284

== ENCOUNTER 2024-05-17 15:05 | Emergency (ER) | payer BC ==
--- OUTSIDE RECORDS SUMMARY | 2024-05-17 15:08 | XMS REPORT | Continuity of Care Document ---
Author Name Unknown Address [address] [facility] [address] [place] [address] [facility] thconnect Address [address] [facility] [address] [place] [address] Care Team Providers Care Conveyor Weigher Operator Name Role Phone Pcp, Patient Does Not Have A Primary Care Physic lei Maurilio CROWELL, Gia Green Attending Clinician Unavailab LILIAM Gilbert Attending Clinician Unavailable Shemar PIPE TURNERDianne Attending Clinician [phone] Liliam Maher Attending Clinician [phone] Doctor Unassigned, [place] Attending Clinician U vinayak Sierra RN, [place] Attending Clinician Unavailab isreal Only, Ang Db Test Attending Clinician Unavailabl e EbGunjan Wick Attending Clinician [phone] GUNJAN MISTRY Attending Clinician Unavailable Lab, Adc Fam Pob I Attending Clinician Unavailab Sara Gudino Attending Clinician [phone] SARA SINGH Attending Clinician Unavailab Meme Malhotra Attending Clinician [phone] MEME VARNER Attending Clinician Unavailable Payers Payer Name Policy Type Policy Number Effective Date Expirati on Date Source Problems Condition Name Condition Details Condition Category Status Onset Date Resolution Date Last Treatment Date Treating Clinician Comments Source No known active problems No known active problems Disease [facility] Allergies, Adverse Reactions, Alerts Allergy Name Allergy Type Status Severity Reaction(s) Onset Date Inactive Date Treating Clinician Comments Source NO KNOWN ALLERGIE S Drug Class Active [facility] Social History Social Habit Start Date Stop Date Quantity Comments Source Exposure to SARS-CoV-2 (event) 2022-04-24 00:00:00 2022-05-04 09:07:00 Not sure [facility] Sex Assigned At 1985 00:00:00 1985 00:00:00 [facility] Smoking Status Start Date Stop Date Source Tobacco smoking consumption unknown [facility] Medications Ordered Medication Name Filled Medication Name Start Date Stop Date Current Medication? Ordering Clinician Indication Dosage Frequency Signature (SIG) Comments Components Source No known medications 05-04 09:34: 28 No No known medication s [facility] Vital Signs Vital Name Observation Time Observation Value Comments S delores Systolic blood pressure 2022-05-04 14:15:00 126 mm[Hg] [facility] Diastolic blood pressure 2022-05-04 14:15:00 85 mm[Hg] [facility] Heart rate 2022-05-04 14:15:00 82 /min [facility] Body temperature 2022-05-04 14:15:00 37.28 Kate [facility] Respiratory rate 2022-05-04 14:15:00 18 /min [facility] Body height 2022-05-04 14:15:00 172.7 cm [facility] Body weight 2022-05-04 14:15:00 126.327 kg [facility] BMI 2022-05-04 14:15:00 42.35 kg/m2 [facility] Oxygen saturation in Arterial blood by Pulse oximetry 2022-05-04 14:15:00 98 /min [facility] Procedures Procedure Date / Time Performed Performing Clinicia n Source POCT MOLECULAR FLU 2022-05-04 14:27:00 [facility] FOR [facility]AG[facility] AND TREATMENT 2022-05-04 14:11:00 Doctor Unassigned, [place] [facility] ASSIGNMENT OF BENEFITS 2022-05-04 14:10:46 Docto r Unassigned, [place] [facility] Encounters Start Date/Time End Date/Time Encounter Type Admission Type Attending Clinicians Care Facility Care Department Encounter ID Source 2022-05-05 00:00:00 2022-05-05 00:00:00 Letter (Out) Gia Thorpe [facility] 1.84.114 350.1.13.10 4.2.7.2.686 [id number] [facility] 2022-05-04 09:00:00 2022-05-04 09:36:04 Outpatient Jensen RITCHIE [facility] [id number] [facility] 2022-05-04 09:00:00 2022-05-04 09:36:04 Urgent Care Dianne Staton [facility] 1.840.114 350.1.13.10 4.2.7.2.686 [id number] [facility] 2022-05-04 00:00:00 2022-05-04 00:00:00 Orders Only Doctor Unassigned, [place] [facility] 1.84.114 350.1.13.10 4.2.7.2.686 [id number] [facility] 2021-06-15 00:00:00 2021-06-15 00:00:00 Letter (Out) Hernesto Sierra [facility] 1.84.114 350.1.13.10 4.2.7.2.686 [id number] [facility] 2021-06-14 16:15:49 2021-06-14 16:25:49 Laboratory Only Only, Ang Db Miguel Angel Mistry [facility] 1.84.114 350.1.13.10 4.2.7.2.686 [id number] [facility] 2021-06-14 16:15:00 2021-06-14 16:15:00 Outpatient R GUNJAN MISTRY [facility] [id number] [facility] 2020-11-19 15:08:08 2020-11-19 15:28:08 Laboratory Only Lab, [facility] Yrn Sandoval I Sara Singh [facility] One ..840.114 350.1.13.10 4.2.7.2.686 [id number] [facility] 2020-11-19 15:20:00 2020-11-19 15:20:00 Outpatient SARA CASTELLANO [facility] [id number] [facility] 2020-11-10 15:43:21 2020-11-10 16:03:21 Laboratory Only Lab, [facility] Lori Xenia Alfarothia [facility] One ..840.114 350.1.13.10 4.2.7.2.686 [id number] [facility] 2020-11-10 16:00:00 2020-11-10 16:00:00 Outpatient MEME MEYER [facility] [id number] [facility] 2019-04-29 15:12:00 2019-04-29 15:12:00 Emergency E [id number] [facility] Results Test Description Test Time Test Comments Results Result Co mments Source [facility]
[2024-05-17] MEDS ORDERED: DIPHENHYDRAMINE 50 MG/ML VIAL ONE (15:12)
[2024-05-17] MEDS ORDERED: METHYLPREDNISOLONE 125 MG INJ ONE (15:12)
[2024-05-17] MEDS ORDERED: FAMOTIDINE 20 MG/2 ML VIAL IV ONE (15:12)
[2024-05-17] MEDS ORDERED: EPINEPHRINE 1 MG/ML VIAL ONE (15:12)
[2024-05-17] MEDS ORDERED: NA CHLORIDE 0.9% 1,000 ML ONE (15:13)
--- NOTE | 2024-05-17 16:53 | ER ---
Nurse's Notes [facility] Name: Yuri Puga Jr Age: 38 yrs Sex: Male : 1985 Arrival Date: 05/17/2024 Time: 15:05 Bed 5 Private MD: Diagnosis: Anaphylactic reaction to insect bite Presentation: 05/17 15:10 Chief complaint: Patient states: stung by a wasp to back of neck approximately 30 mins aa5 ago, pt reports feeling throat closing up, speech is clear and speaking in complete sentences. 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 Coronavirus screen: At this time, the client does not indicate any symptoms associated with coronavirus-19. Ebola Screen: Patient denies travel to an Ebola-affected area in the 21 days before illness onset. Onset: The symptoms/episode began/occurred 30 minute(s) ago. Onset of symptoms was May 2024. 15:10 Acuity: FERNANDA 2 aa5 15:10 Method Of Arrival: Ambulatory aa5 15:10 Anaphylaxis evaluation, the patient reports or I have noted the following symptoms kc6 which indicate a significant risk of anaphylaxis: lump in the throat which may suggest laryngeal edema shortness of breath urticaria. Initial Sepsis Screen: Does the patient meet any 2 criteria? HR > 90 bpm. Does the patient have a suspected source of infection? No. Patient's initial sepsis screen is negative. Risk Assessment: Do you want to hurt yourself or someone else? Patient reports no desire to harm self or others. Historical: - Allergies: 15:10 No Known Allergies; aa5 - Home Meds: 15:10 None [Active]; aa5 - PMHx: 15:10 None; aa5 - PSHx: 15:10 Appendectomy; p. cyst; aa5 - Immunization history:: Adult Immunizations unknown. - Infectious Disease History:: Denies. - Social history:: Smoking status: Patient reports use of chewing tobacco. Screenin:10 [facility] ED Fall Risk Assessment (Adult) History of falling in the last 3 months, kc6 including since admission No falls in past 3 months (0 pts) Confusion or Disorientation No (0 pts) Intoxicated or Sedated No (0 pts) Impaired Gait No (0 pts) Mobility Assist Device Used No (0 pt) Altered Elimination No (0 pt) Score/Fall Risk Level 0 - 2 = Low Risk. Abuse screen: Denies threats or abuse. Denies injuries from another. Nutritional screening: No deficits noted. Tuberculosis screening: No symptoms or risk factors identified. Assessment: 15:15 General: Appears in no apparent distress. uncomfortable, well groomed, well developed, kc6 Behavior is cooperative, anxious. Pain: Denies pain. Neuro: Level of Consciousness is awake, alert, obeys commands, Oriented to person, place, time, situation, Appropriate for age. Cardiovascular: Reports shortness of breath, Denies chest pain, Heart tones S1 S2 present Capillary refill < 3 seconds Rhythm is sinus tachycardia. Respiratory: Reports shortness of breath Airway is patent Trachea midline Respiratory effort is even, unlabored, Respiratory pattern is regular, symmetrical, Breath sounds are clear bilaterally. GI: No signs and/or symptoms were reported involving the gastrointestinal system. : No signs and/or symptoms were reported regarding the genitourinary system. EENT: Throat is clear bilaterally with gag reflex present, Reports difficulty swallowing. Derm: Skin is intact, is healthy with good turgor, Skin is dry, Skin is normal, Skin temperature is warm Rash noted that is itchy, red, urticaria, on face, chest, abdomen, right arm, left arm, right leg and left leg. Musculoskeletal: Range of motion: intact in all extremities, Swelling present in right eye and left eye. 15:25 Reassessment: Contacted poison control, pt reports he ingested approximately half a aa5 bottle of Children's Benadryl (Full bottle is 118 mls), spoke to Kira, case # [id number], Kira reported pt ingested a non-toxic amount of Benadryl per his weight, reports toxic dose is Benadryl 10 mg/Kg, states may administer more Benadryl if needed, no further recommendations. Nell Dooley, EULALIO notified. . 16:24 Reassessment: Patient appears in no apparent distress at this time. No changes from kc6 previously documented assessment. Patient and/or family updated on plan of care and expected duration. Pain level reassessed. Patient is alert, oriented x 3, equal unlabored respirations, skin warm/dry/pink. Patient states feeling better. Patient states symptoms have improved. 17:00 Reassessment: Patient is alert, oriented x 3, equal unlabored respirations, skin aa5 warm/dry/pink. Vital Signs: 15:10 BP 109 / 79; Pulse 140; Resp 20 S; Pulse Ox 92% on R/A; kc6 15:38 BP 126 / 76; Pulse 104; Resp 19 S; Pulse Ox 98% on R/A; kc6 16:24 BP 123 / 70; Pulse 99; Resp 18 S; Pulse Ox 97% on R/A; kc6 17:00 BP 117 / 64; Pulse 100; Resp 18 S; Pulse Ox 98% on R/A; aa5 ED Course: 15:06 Patient arrived in ED. im 15:08 [facility] 15:08 Bear Wolff MD is Attending Physician. jh7 15:10 Arm band placed on. aa5 15:10 Patient has correct armband on for positive identification. Bed in low position. Call kc6 light in reach. Side rails up X 1. Adult w/ patient. traffic monitor specialist on. Pulse ox on. NIBP on. Pillow given. 15:10 EKG done, by ED staff, reviewed by Nell BROCK. Inserted saline lock: 20 gauge kc6 in right antecubital area, using aseptic technique. Blood collected. Flushed with 10 mL NS. 15:13 Triage completed. aa5 15:37 Shruthi Mckenna, RN is Primary Nurse. kc6 17:00 No provider procedures requiring assistance completed. IV discontinued, intact, aa5 bleeding controlled, No redness/swelling at site. Pressure dressing applied. Administered Medications: 15:21 Drug: EPINEPHrine 1:1000 Sub-Q 1:1,000 0.3 ml Sub-Q once Route: Sub-Q; Site: right kc6 upper arm; 15:42 Follow up: Response: No adverse reaction 6 15:21 Drug: Famotidine IVP 20 mg IVP once; dilute with 10 mL 0.9% NaCl; give over 2 minutes kc6 Route: IVP; Site: right antecubital; 15:42 Follow up: Response: No adverse reaction [facility] 15:22 Drug: MethylPrednisoLONE IVP 125 mg IVP once Route: IVP; Site: right antecubital; kc6 15:42 Follow up: Response: No adverse reaction [facility] 15:22 Drug: NS 0.9% IV 1000 ml IV at 1 bolus Per protocol; 1000 mL bolus Route: IV; Rate: 1 kc6 bolus; Site: right antecubital; 16:24 Follow up: Response: No adverse reaction; IV Status: Completed infusion; IV Intake: kc6 1000ml Medication: 17:00 VIS not applicable for this client. aa5 Intake: 16:24 IV: 1000ml; Total: 1000ml. kc6 Outcome: 16:53 Discharge ordered by MD. akers 17:05 Discharged to home ambulatory, with significant other, aa5 17:05 Condition: improved 17:05 Discharge instructions given to patient, Instructed on discharge instructions, follow up and referral plans. medication usage, Demonstrated understanding of instructions, follow-up care, medications, Prescriptions given X 1, 17:09 Patient left the ED. aa5 Signatures: Maria Victoria Nieves, RN RN aa5 Nell Dooley, [place] [facility] [place] Shruthi Rodriges RN RN kc6 Sara Ramon Corrections: (The following items were deleted from the chart) 15:19 15:10 Chief complaint: Patient states: stung by a wasp to back of neck approximately 30 aa5 mins ago, pt reports feeling throat closing up, speech is clear and speaking in complete sentences. aa5
--- NOTE | 2024-05-17 16:53 | EDPHYS ---
Physician Documentation [facility] Name: Yuri Puga Jr Age: 38 yrs Sex: Male : 1985 Arrival Date: 05/17/2024 Time: 15:05 Bed 5 Private MD: ED Physician Bear Wolff HPI: 05/17 15:10 This 38 yrs old Male presents to ER via Ambulatory with complaints of Allergic Reaction.[facility] 15:10 38-year-old male with no significant past medical history presents to the ER for [facility] allergic reaction to a wasp sting. The patient reports that prior to arrival he drank one half a small bottle of children's Benadryl. He states that just prior to arrival he was cutting a tree and that a wasp stung him on the neck. Complains of shortness of breath, feeling like his throat is swelling, and diffuse hives.. Historical: - Allergies: 15:10 No Known Allergies; aa5 - Home Meds: 15:10 None [Active]; aa5 - PMHx: 15:10 None; aa5 - PSHx: 15:10 Appendectomy; p. cyst; aa5 - Immunization history:: Adult Immunizations unknown. - Infectious Disease History:: Denies. - Social history:: Smoking status: Patient reports use of chewing tobacco. ROS: 15:10 Constitutional: Per HPI 7 Exam: 15:10 Constitutional: This is a well developed, well nourished patient who is awake, alert, jh7 and in no acute distress. ENT: Nares patent. No nasal discharge, no septal abnormalities noted. Tympanic membranes are normal and external auditory canals are clear. Oropharynx with no redness, swelling, or masses, exudates, or evidence of obstruction, uvula midline. Mucous membranes moist. Neck: Trachea midline, no thyromegaly or masses palpated, and no cervical lymphadenopathy. Supple, full range of motion without nuchal rigidity, or vertebral point tenderness. No Meningismus. Cardiovascular: Regular rate and rhythm with a normal S1 and S2. No gallops, murmurs, or rubs. Normal PMI, no JVD. No pulse deficits. Respiratory: Lungs have equal breath sounds bilaterally, clear to auscultation and percussion. No rales, rhonchi or wheezes noted. No increased work of breathing, no retractions or nasal flaring. Abdomen/GI: Soft, non-tender, with normal bowel sounds. No distension or tympany. No guarding or rebound. No evidence of tenderness throughout. MS/ Extremity: Pulses equal, no cyanosis. Neurovascular intact. Full, normal range of motion. Neuro: Awake and alert, GCS 15, oriented to person, place, time, and situation. Cranial nerves II-XII grossly intact. Motor strength 5/5 in all extremities. Sensory grossly intact. Cerebellar exam normal. Normal gait. 15:10 Eyes: Periorbital structures: swelling, that is mild, bilaterally, 15:10 Skin: urticaria, and is diffusely located, Vital Signs: 15:10 BP 109 / 79; Pulse 140; Resp 20 S; Pulse Ox 92% on R/A; kc6 15:38 BP 126 / 76; Pulse 104; Resp 19 S; Pulse Ox 98% on R/A; kc6 16:24 BP 123 / 70; Pulse 99; Resp 18 S; Pulse Ox 97% on R/A; kc6 17:00 BP 117 / 64; Pulse 100; Resp 18 S; Pulse Ox 98% on R/A; aa5 MDM: 15:08 Patient medically screened. [facility] 17:00 Differential diagnosis: anaphylaxis, angioedema, urticaria. Data reviewed: vital signs, [facility] nurses notes, EKG. I considered the following discharge prescriptions or medication management in the emergency department Medications were administered in the Emergency Department. See MAR. Independent interpretation of the following test(s) in the Emergency Department EKG: See my EKG interpretation above. Historians other than the Patient: Spouse/Significant Other: . Counseling: I had a detailed discussion with the patient and/or guardian regarding the historical points, exam findings, and any diagnostic results supporting the discharge/admit diagnosis, to return to the emergency department if symptoms worsen or persist or if there are any questions or concerns that arise at home. Response to treatment: the patient's symptoms have markedly improved after treatment. ED course: The patient remained hemodynamically stable throughout the ER visit. He reported a resolution of symptoms. Informed him that poison control said that 147.5 mg of Benadryl was not considered a toxic dose for his weight, but that he should expect to feel sleepy for the next several hours. Prescribed a Medrol Dosepak if he has any symptoms by tomorrow morning.. 05/17 15:14 Order name: EKG - Nurse/Tech; Complete Time: 15: [facility] 05/17 15:14 Order name: IV Start; Complete Time: 15: jh7 EC: Rate is 116 beats/min. Rhythm is regular. QRS [place] is Normal. OK interval is normal at [facility] 146 msec. QRS interval is normal at 82 msec. QT interval is normal at 320 msec. No Q waves. T waves are Normal. No ST changes noted. Clinical impression: Sinus tachycardia. Administered Medications: 15: Drug: EPINEPHrine 1:1000 Sub-Q 1:1,000 0.3 ml Sub-Q once Route: Sub-Q; Site: right [facility] upper arm; 15:42 Follow up: Response: No adverse reaction [facility] 15:21 Drug: Famotidine IVP 20 mg IVP once; dilute with 10 mL 0.9% NaCl; give over 2 minutes kc6 Route: IVP; Site: right antecubital; 15:42 Follow up: Response: No adverse reaction [facility] 15:22 Drug: MethylPrednisoLONE IVP 125 mg IVP once Route: IVP; Site: right antecubital; [facility] 15:42 Follow up: Response: No adverse reaction [facility] 15:22 Drug: NS 0.9% IV 1000 ml IV at 1 bolus Per protocol; 1000 mL bolus Route: IV; Rate: 1 kc6 bolus; Site: right antecubital; 16:24 Follow up: Response: No adverse reaction; IV Status: Completed infusion; IV Intake: kc6 1000ml Disposition: 19:59 Co-signature as Attending Physician, Bear Wolff MD I reviewed the patient's care rt provided by the Advanced Practice Provider and agree with the diagnosis and treatment plan. Disposition Summary: 05/17/24 16:53 Discharge Ordered Notes: Location: Home [facility] Problem: new [facility] Symptoms: have improved [facility] Condition: Stable [facility] Diagnosis - Anaphylactic reaction to insect bite [facility] Followup: [facility] - With: Private Physician - When: 2 - 3 days - Reason: Recheck today's complaints Discharge Instructions: - Discharge Summary Sheet [facility] - Anaphylactic Reaction, Adult [facility] Forms: - Medication Reconciliation Form [facility] - Patient Portal Instructions [facility] - Leadership Thank You Letter [facility] Prescriptions: - Medrol (Matthew) 4 mg Oral Tablets, Dose Pack - take 1 tablet ORAL route as directed - follow package instructions; 1 packet; jh7 Refills: 0, Product Selection Permitted Signatures: Maria Victoria Nieves, RN RN aa5 Nell Dooley FNP FNP jh7 Shruthi Mckenna RN RN kc6 Bear Wolff MD MD rt
[2024-05-17 18:01] VITALS: BP 123/70; O2SAT 97
--- NOTE | 2024-05-19 17:03 | EKG ---
Test Date: 2024-05-17 Test Time: 15:22:15 Pulverizing And Sifting Operator: TWYLA MEASUREMENT RESULTS: Intervals: Rate: 116 MN: 146 QRSD: 82 QT: 320 QTc: 444 [place]: P: 44 MN: 146 QRS: 99 T: 33 INTERPRETIVE STATEMENTS: Sinus tachycardia Rightward axis Possible Anterior infarct, age undetermined Abnormal ECG Compared to ECG 03/18/2024 15:44:57 Right-axis deviation now present Myocardial infarct finding now present Electronically Signed On 05-19-24 16:58:26 CDT by Arthur Ferrer
== END 2024-05-17 17:09 | disposition home or self-care (01) ==
LOC: ER 15:05
DX: T63.461A Toxic effect of venom of wasps, accidental (unintentional), initial encounter (principal); T78.2XXA Anaphylactic shock, unspecified, initial encounter
CPT/HCPCS: 96361; 93005; 96375; 96372; 96374; 99285; J0171; J2919; J7030; J1200

== ENCOUNTER 2024-12-29 11:30 | Emergency (ER) | payer BC ==
--- OUTSIDE RECORDS SUMMARY | 2024-12-29 11:33 | XMS REPORT | Continuity of Care Document ---
Author Name Unknown Address [address] [place] [address] [facility] Address [address] [place] [address] Care Team Providers Care Oil [employer] Field Technician Name Role Phone Yaw KAUFMAN, Willy Dial Primary Care Physician Maurilio CROWELL, Gia Green Attending Clinician Unavailab LILIAM Gilbert Attending Clinician Unavailable Shemar MUSIC VIDEO DIRECTORDianne Attending Clinician [phone] Liliam Maher Attending Clinician [phone] Doctor Unassigned, [place] Attending Clinician U vinayak Sierra RN, Hernesto Attending Clinician Unavailab isreal Only, Ang Db Test Attending Clinician Unavailabl e EbrahiGunjan Rivas Attending Clinician [phone] GUNJAN MISTRY Attending Clinician Unavailable Lab, Adc Fam Pob I Attending Clinician Unavailab Sara Gudino Attending Clinician + [phone] SARA SINGH Attending Clinician Unavailab Meme Malhotra Attending Clinician [phone] MEME VARNER Attending Clinician Unavailable Payers Payer Name Policy Type Policy Number Effective Date Expirati on Date Source Problems Condition Name Condition Details Condition Category Status Onset Date Resolution Date Last Treatment Date Treating Clinician Comments Source No known active problems No known active problems Disease [facility] Allergies, Adverse Reactions, Alerts Allergy Name Allergy Type Status Severity Reaction(s) Onset Date Inactive Date Treating Clinician Comments Source NO KNOWN ALLERGIE S Drug Class Active [facility] Social History Social Habit Start Date Stop Date Quantity Comments Source Exposure to SARS-CoV-2 (event) 2022-04-24 00:00:00 2022-05-04 09:07:00 Not sure [facility] Sex Assigned At 1985 00:00:00 1985 00:00:00 [facility] Smoking Status Start Date Stop Date Source Tobacco smoking consumption unknown [facility] Medications Ordered Medication Name Filled Medication Name Start Date Stop Date Current Medication? Ordering Clinician Indication Dosage Frequency Signature (SIG) Comments Components Source gabapentin 100 mg capsule 2023-10 00:00: 00 Yes mg Mark Nguyen No known medications 05-04 09:34: 28 No No known medication s [facility] Vital Signs Vital Name Observation Time Observation Value Comments S delores Systolic blood pressure 2022-05-04 14:15:00 126 mm[Hg] [facility] Diastolic blood pressure 2022-05-04 14:15:00 85 mm[Hg] [facility] Heart rate 2022-05-04 14:15:00 82 /min [facility] Body temperature 2022-05-04 14:15:00 37.28 Kate [facility] Respiratory rate 2022-05-04 14:15:00 18 /min [facility] Body height 2022-05-04 14:15:00 172.7 cm [facility] Body weight 2022-05-04 14:15:00 126.327 kg [facility] BMI 2022-05-04 14:15:00 42.35 kg/m2 [facility] Oxygen saturation in Arterial blood by Pulse oximetry 2022-05-04 14:15:00 98 /min [facility] BP Systolic 2024-11-03 08:12:00 138 mm[Hg] Bebeto Nguyen BP Diastolic 2024-11-03 08:12:00 93 mm[Hg] Deny Nguyen Weight Measured 2024-11-03 08:12:00 270.20 pounds Mark Nguyen Height Measured 2024-11-03 08:12:00 68.00 inches Mark Nguyen Body Temperature 2024-11-03 08:12:00 92.00 degrees Mark Nguyen Heart Rate 2024-11-03 08:12:00 93.00 /min Anita en Angelina Nguyen Respiratory Rate 2024-11-03 08:12:00 Mark Nguyen Respiratory Rate 2024-10-27 14:55:00 Mark Nguyen BP Systolic 2024-10-27 14:55:00 127 mm[Hg] Bebeto Nguyen BP Diastolic 2024-10-27 14:55:00 101 mm[Hg] Deny Nguyen Weight Measured 2024-10-27 14:55:00 272.00 pounds Mark Nguyen Height Measured 2024-10-27 14:55:00 70.00 inches Mark Nguyen Body Temperature 2024-10-27 14:55:00 98.70 degrees Mark Nguyen Heart Rate 2024-10-27 14:55:00 97.00 /min Anita Nguyen Procedures Procedure Date / Time Performed Performing Clinicia n Source Portable Home Sleep Study 2024-11-03 00:00:00 Mark Nguyen POCT MOLECULAR FLU 2022-05-04 14:27:[address] [facility]US[facility] FOR DIAGNOSIS AND TREATMENT 2022-05-04 14:11:00 Doctor Unassigned, [place] [facility] ASSIGNMENT OF BENEFITS 2022-05-04 14:10:46 Docto r Unassigned, [place] [facility] Encounters Start Date/Time End Date/Time Encounter Type Admission Type Attending [facility] Care Facility Care Department Encounter ID Source 2024-11-17 13:40:18 2024-11-17 13:40:18 Outpatient [facility] [id number] Mark Nguyen 2024-11-17 00:00:00 2024-11-17 00:00:00 Outpatient Visit [facility] [id number] Mark Nguyen 2024-11-03 08:28:22 2024-11-03 08:28:22 Outpatient [facility] [id number] Mark Nguyen 2024-10-27 14:49:27 2024-10-27 14:49:27 Outpatient [facility] [id number] Mark Nguyen 2024-10-27 00:00:00 2024-10-27 00:00:00 [facility] [id number] Mark Nguyen 2022-05-05 00:00:00 2022-05-05 00:00:00 Letter (Out) Gia Thorpe [facility] 1.114 [id number] [facility] 2022-05-04 09:00:00 2022-05-04 09:36:04 Outpatient R [facility] [id number] [facility] 2022-05-04 09:00:00 2022-05-04 09:36:04 Urgent Care Shemar, Dianne Godoy [facility] [id number] [facility] 2022-05-04 00:00:00 2022-05-04 00:00:00 Orders Only Doctor Unassigned, [place] [facility] 1.114 [id number] [facility] 2021-06-15 00:00:00 2021-06-15 00:00:00 Letter (Out) Hernesto Sierra [facility] 1.114 [id number] [id number] [id number] [facility] 2021-06-14 16:15:49 2021-06-14 16:25:49 Laboratory Only Only, Ang Db Test Gunjan Mistry [facility] Medical Office Building [id number] [id number] [facility] 2021-06-14 16:15:00 2021-06-14 16:15:00 Outpatient R GUNJAN MISTRY [facility] [id number] [facility] 2020-11-19 15:08:08 2020-11-19 15:28:08 Laboratory Only Lab, [facility] Lori Smith Sara Singh [facility] One .[id number] [facility] 2020-11-19 15:20:00 2020-11-19 15:20:00 Outpatient SARA CASTELLANO [facility] [id number] [facility] 2020-11-10 15:43:21 2020-11-10 16:03:21 Laboratory Only Lab, [facility] .[id number] [facility] 2020-11-10 16:00:00 2020-11-10 16:00:00 Outpatient MEME MEYER [facility] [id number] [facility] 2019-04-29 15:12:00 2019-04-29 15:12:00 Emergency E [id number] Results Test Description Test Time Test Comments Results Result Co mments Source [facility] Notes Date/Time Note Provider Source Mark Eddie [facility]2025-01-13 00:00:00 [facility]
[2024-12-29] MEDS ORDERED: FAMOTIDINE 20 MG/2 ML VIAL IV ONE (12:23)
--- NOTE | 2024-12-29 12:44 | RAD REPORT ---
EXAM: Right upper quadrant ultrasound. CLINICAL HISTORY: ABD PAIN COMPARISON: None. FINDINGS: Gallbladder: Normal. Bile ducts: No intrahepatic or extrahepatic biliary dilatation. Common bile duct measures 4 mm. Limited imaging of the liver shows no concerning finding. IMPRESSION: Unremarkable exam.
[2024-12-29 12:58] LABS: Absolute Basophils 0.1 K/uL (0-0.5); Absolute Lymphocytes (CBC) 2.3 K/uL (0.7-4.9); Absolute Monocytes 0.7 K/uL (0.1-1.3); Absolute Neutrophil 5.8 K/uL (1.8-8.0); Basophils % 0.8 % (0-1.3); Eosinophils % 0.5 % (0-4.4); Hematocrit 44.6 % (39.6-49.0); Hemoglobin 15.1 g/dL (13.6-17.9); Lymphocytes % 25.9 % (15.3-44.8); MCH 30.7 pg (27.0-35.0); MCHC 33.9 g/dL (32.0-36.0); MCV 90.6 fL (80-100); MPV 8.4 fL (7.6-11.3); Neutrophils % 64.8 % (41.7-73.7); Nucleated Red Blood Cells % 0.1 % (0-0); Platelets 268 thou/uL (152-406); RBC Red Blood Cell Count 4.93 M/uL (4.33-5.43); Red Cell Distribution Width 13.8 % (12.1-15.2)
[2024-12-29] MEDS ORDERED: MORPHINE 4 MG/ML SYR ONE (13:03)
[2024-12-29 13:16] LABS: ALT/SGPT 48 U/L (16-61); AST/SGOT 17 U/L (15-37); Albumin 3.7 g/dL (3.4-5.0); Albumin/Globulin Ratio 0.9 (1.1-1.8); Alkaline Phosphatase 81 U/L (45-117); Anion Gap 9.8 mEq/L (5.0-15.0); BUN Blood Urea Nitrogen 15 mg/dL (7-18); Bicarbonate 26 mEq/L (21-32); Bilirubin Total 0.5 mg/dL (0.2-1.0); Globulin 4.1 g/dL (2.3-3.5); Glomerular Filtration Rate 109 ml/min (=/>90); Glucose Level 93 mg/dL (74-106); Lipase 13 U/L (13-75); Potassium 3.8 mEq/L (3.5-5.1); Protein, Total 7.8 g/dL (6.4-8.2); Sodium Level 137 mEq/L (136-145)
[2024-12-29 13:18] LABS: Bilirubin Direct < 0.2 mg/dL (0-0.2); Bilirubin Indirect, Calculated 0.3 mg/dL (0.2-0.8); Troponin High Sensitivity < 3.0 pg/mL (<58.9)
--- NOTE | 2024-12-29 15:33 | RAD REPORT ---
EXAMINATION: CT ABDOMEN AND PELVIS WITH CONTRAST CLINICAL INDICATION: Male, 39 years old.ABD PAIN TECHNIQUE: CT abdomen and pelvis was performed, after the administration of IV contrast, as per [facility] protocol. Axial, sagittal and coronal reconstructions were obtained. One or more of the following dose reduction techniques were used: Automated exposure control, adjustment of the mA and/o r kV according to patient size, and/or iterative reconstruction. Unless otherwise specified, incidental findings do not require dedicated imaging follow-up. [id number]. COMPARISON: 10/04/2023 FINDINGS: LOWER CHEST: No acute process identified.No significant pericardial effusion. Moderate circumferentia l thickening of the distal esophagus which could reflect esophagitis. Endoscopy could better evaluate. UPPER GI: No significant abnormality. LIVER: Hepatic steatosis, but otherwise unremarkable. GALLBLADDER/BILE DUCTS: No biliary ductal dilatation.? PANCREAS: No mass, ductal dilation, or misael-pancreatic fluid. SPLEEN: Unremarkable. ADRENALS: No adrenal masses. KIDNEYS AND URETERS: No hydronephrosis.No suspicious renal mass.No renal calculi. ABDOMINAL AORTA AND OTHER VESSELS: Normal caliber aorta and IVC. PERITONEUM: No abnormal free fluid. No free air. LYMPH NODES: No pathologic lymphadenopathy. ABDOMINAL WALL: Small fat containing umbilical hernia. SMALL BOWEL/COLON: Small bowel has normal course and caliber. No colonic wall thickening or pericolon ic inflammatory changes.Nonvisualized appendix but no secondary signs of acute appendicitis. Moderate diverticulosis without diverticulitis. Mild formed stool burden. URINARY BLADDER: Underdistended but grossly unremarkable. REPRODUCTIVE ORGANS: No pathologic process. MUSCULOSKELETAL: No acute or suspicious osseous abnormality. ADDITIONAL FINDINGS: None. IMPRESSION: No acute findings within the abdomen or pelvis. Incidental findings as noted above.
--- NOTE | 2024-12-29 16:12 | ER ---
Nurse's Notes [facility] Name: Yuri Puga Jr Age: 39 yrs Sex: Male : 1985 Arrival Date: 12/29/2024 Time: 11:30 Bed 15 Private MD: Diagnosis: Upper abdominal pain, unspecified Presentation: 12/29 11:57 Chief complaint: Patient states: Epigastric/RUQ abd pain since Sunday with nausea and ll1 diarrhea. Coronavirus screen: Client denies travel out of the [place] in the last 14 days. At this time, the client does not indicate any symptoms associated with coronavirus-19. Ebola Screen: Patient denies travel to an Ebola-affected area in the 21 days before illness onset. Initial Sepsis Screen: Does the patient meet any 2 criteria? No. Patient's initial sepsis screen is negative. Does the patient have a suspected source of infection? No. Patient's initial sepsis screen is negative. Risk Assessment: Do you want to hurt yourself or someone else? Patient reports no desire to harm self or others. Onset of symptoms was December 27, 2024. 11:57 Method Of Arrival: Ambulatory ll1 11:57 Acuity: FERNANDA 3 ll1 Historical: - Allergies: 11:51 No Known Allergies; ss - PSHx: 11:51 Appendectomy; p. cyst; ss - Immunization history:: Adult Immunizations up to date. - Infectious Disease History:: Denies. - Social history:: Smoking status: Patient denies any tobacco usage or history of. Screenin:05 [facility] ED Fall Risk Assessment (Adult) History of falling in the last 3 months, me1 including since admission No falls in past 3 months (0 pts) Confusion or Disorientation No (0 pts) Intoxicated or Sedated No (0 pts) Impaired Gait No (0 pts) Mobility Assist Device Used No (0 pt) Altered Elimination No (0 pt) Score/Fall Risk Level 0 - 2 = Low Risk Maintained a safe environment, Provided non-skid footwear, Hourly rounding (assess needs \T\ fall precautionary measures) done. Abuse screen: Denies threats or abuse. Nutritional screening: No deficits noted. Tuberculosis screening: No symptoms or risk factors identified. Assessment: 12:05 General: Appears uncomfortable, well groomed, well developed, well nourished, Behavior me1 is calm, cooperative, appropriate for age, Reports Epigastric/RUQ abd pain since Sunday with nausea and diarrhea. Pain: Complains of pain in right upper quadrant Pain radiates to back Pain currently is 8 out of 10 on a pain scale. Quality of pain is described as sharp, Pain began 2-3 days ago. Is continuous. Neuro: Level of Consciousness is awake, alert, obeys commands, Oriented to person, place, time, situation, Appropriate for age. Cardiovascular: Patient's skin is warm and dry. Respiratory: Airway is patent Respiratory effort is even, unlabored, Respiratory pattern is regular, symmetrical. GI: Reports upper abdominal pain, diarrhea, nausea, since sunday. : No signs and/or symptoms were reported regarding the genitourinary system. EENT: No signs and/or symptoms were reported regarding the EENT system. Derm: Skin is intact, is healthy with good turgor, Skin is pink, warm \T\ dry. Musculoskeletal: No signs and/or symptoms reported regarding the musculoskeletal system. Vital Signs: 11:57 BP 150 / 100; Pulse 89; Resp 20; Temp 98.1; Pulse Ox 95% on R/A; Weight 115.67 kg; ll1 Height 5 ft. 9 in. ; Pain 8/10; 13:00 BP 121 / 80; Pulse 97; Resp 19; Pulse Ox 96% ; me1 14:00 BP 125 / 79; Pulse 84; Resp 20; Pulse Ox 98% ; me1 15:00 BP 118 / 79; Pulse 78; Resp 19; Pulse Ox 98% ; me1 16:00 BP 131 / 88; Pulse 80; Resp 19; Temp 98.1; Pulse Ox 97% ; me1 11:57 Body Mass Index 37.66 (115.67 kg, 175.26 cm) ll1 11:57 Pain Scale: Adult ll1 ED Course: 11:33 Patient arrived in ED. im 11:43 Roland Byers DO is Attending Physician. ms3 11:52 Arm band placed on. ss 11:52 Patient placed in an exam room, on a stretcher. ss 11:58 Triage completed. ll1 12:01 Shanthi Juan, SOCRATES is Primary Nurse. me1 12:05 Patient has correct armband on for positive identification. Bed in low position. Call me1 light in reach. Side rails up X 1. Provided Education on: POC. Verbalized understanding.. Client placed on continuous cardiac and pulse oximetry monitoring. NIBP monitoring applied. monitor car operator on. Pulse ox on. NIBP on. 12:05 No provider procedures requiring assistance completed. Patient maintains SpO2 me1 saturation greater than 95% on room air. 12:37 US Abdomen Limited In Process Unspecified. EDMS 12:47 Basic Metabolic Panel Sent. me1 12:47 CBC with Diff Sent. me1 12:47 LFT's Sent. me1 12:48 Troponin HS Sent. me1 12:48 Lipase Sent. me1 12:48 Initial lab(s) drawn, by me, sent to lab. EKG done, by ED staff, reviewed by Roland Byers DO. Inserted saline lock: 22 gauge in right antecubital area, using aseptic technique. 15:09 CT Abd/Pelvis - IV Contrast Only In Process Unspecified. EDMS 16:12 Rizwan Manriquez DO is Referral Physician. ms3 16:32 IV discontinued, intact, bleeding controlled, No redness/swelling at site. Pressure me1 dressing applied. Administered Medications: 12:48 Drug: Famotidine IVP 20 mg IVP once; dilute with 10 mL 0.9% NaCl; give over 2 minutes me1 Route: IVP; Site: right antecubital; 13:08 Follow up: Response: No adverse reaction me1 13:11 Drug: morphine IVP or IV 4 mg IVP once over 4 mins Route: IVP; Infused Over: 4 mins; me1 Site: right antecubital; 13:30 Follow up: Response: No adverse reaction; Pain is decreased me1 Medication: 12:05 VIS not applicable for this client. me1 Outcome: 16:12 Discharge ordered by . ms3 16:32 Discharged to home ambulatory, me1 16:32 Condition: stable 16:32 Discharge instructions given to patient, Instructed on discharge instructions, follow up and referral plans. medication usage, Demonstrated understanding of instructions, follow-up care, medications, 16:32 Patient left the ED. me1 Signatures: Dispatcher [employer] EDMS Magy Salazar RN RN Larry Michel RN RN 1 Roland Byers DO DO ms3 Ramon, Sara im Eddleman, Shanthi, RN RN me1 Corrections: (The following items were deleted from the chart) 13:13 11:57 Chief complaint: Patient states: Epigastric/RUQ abd pain since Sunday with me1 nausea and diarrhea ll1 16:26 16:00 BP 131 / 88; Pulse 80bpm; Resp 19bpm; Pulse Ox 97%; me1 me1
--- NOTE | 2024-12-29 16:12 | EDPHYS ---
Physician Documentation [facility] Name: Yuri Puga Jr Age: 39 yrs Sex: Male : 1985 Arrival Date: 12/29/2024 Time: 11:30 Bed 15 Private MD: ED Physician Roland Byers HPI: 12/29 13:59 This 39 yrs old Male presents to ER via Ambulatory with complaints of Chest Pain, under ms3 rib pain. 13:59 39-year-old male with no past medical history presents emergency department for ms3 epigastric and right upper quadrant abdominal pain that began on Sunday. Patient states the pain is worse with lifting. Patient endorses nausea and denies shortness of breath. Patient states the pain is an 8/10. Patient denies fevers, chills, shortness of breath. Historical: - Allergies: 11:51 No Known Allergies; ss - PSHx: 11:51 Appendectomy; p. cyst; ss - Immunization history:: Adult Immunizations up to date. - Infectious Disease History:: Denies. - Social history:: Smoking status: Patient denies any tobacco usage or history of. ROS: 13:59 Constitutional: Negative for fever, and chills. Respiratory: Negative for shortness of ms3 breath, cough, wheezing, and pleuritic chest pain, 13:59 Cardiovascular: Positive for chest pain, 13:59 Abdomen/GI: Positive for abdominal pain, nausea, Negative for vomiting, diarrhea, ms3 Exam: 13:57 ECG was reviewed by the Attending Physician. ms3 13:59 Constitutional: This is a well developed, well nourished patient who is awake, alert, ms3 and in no acute distress. Cardiovascular: Regular rate and rhythm with a normal S1 and S2. No gallops, murmurs, or rubs. Normal PMI, no JVD. No pulse deficits. Respiratory: Lungs have equal breath sounds bilaterally, clear to auscultation and percussion. No rales, rhonchi or wheezes noted. No increased work of breathing, no retractions or nasal flaring. Skin: Warm, dry with normal turgor. Normal color with no rashes, no lesions, and no evidence of cellulitis. MS/ Extremity: Pulses equal, no cyanosis. Neurovascular intact. Full, normal range of motion. 13:59 Abdomen/GI: Inspection: abdomen appears normal, Bowel sounds: normal, Palpation: moderate abdominal tenderness, in the epigastric area and right upper quadrant, Vital Signs: 11:57 BP 150 / 100; Pulse 89; Resp 20; Temp 98.1; Pulse Ox 95% on R/A; Weight 115.67 kg; ll1 Height 5 ft. 9 in. ; Pain 8/10; 13:00 BP 121 / 80; Pulse 97; Resp 19; Pulse Ox 96% ; me1 14:00 BP 125 / 79; Pulse 84; Resp 20; Pulse Ox 98% ; me1 15:00 BP 118 / 79; Pulse 78; Resp 19; Pulse Ox 98% ; me1 16:00 BP 131 / 88; Pulse 80; Resp 19; Temp 98.1; Pulse Ox 97% ; me1 11:57 Body Mass Index 37.66 (115.67 kg, 175.26 cm) ll1 11:57 Pain Scale: Adult ll1 MDM: 11:57 Medical Screening Exam initiated ms3 13:59 Differential diagnosis: abnormal EKG, acute myocardial infarction, cholecystitis, ms3 Cholelithiasis pancreatitis. 17:36 HEART Score: History: Slightly Suspicious (0), ECG: Normal (0), Age: < or = 45 years ms3 (0), Risk Factors: No Risk Factors Known (0), Troponin: < or = 1 x Normal Limit (0), Total Score = 0. Data reviewed: vital signs, nurses notes, lab test result(s), radiologic studies, and as a result, I will discharge patient. I considered the following discharge prescriptions or medication management in the emergency department Medications were administered in the Emergency Department. See MAR. Independent interpretation of the following test(s) in the Emergency Department EKG: See my EKG interpretation above. Counseling: I had a detailed discussion with the patient and/or guardian regarding the historical points, exam findings, and any diagnostic results supporting the discharge/admit diagnosis, lab results, radiology results, the need for outpatient follow up, to return to the emergency department if symptoms worsen or persist or if there are any questions or concerns that arise at home. Special discussion: Based on the patient's Hx, exam, and Dx evaluation, there is no indication for emergent surgery or inpatient Tx. It is understood by the patient/guardian that if the Sx's persist or worsen they need to return immediately for re-evaluation. ED course: Discussed labs, EKG, imaging with patient and his . Patient to follow-up with primary care physician in 2 to 3 days. Patient understands and agrees with plan. All questions were answered. Return precautions discussed include worsening symptoms, or any other concerns.. 12/29 11:57 Order name: Basic Metabolic Panel; Complete Time: 13:20 ms3 12/29 11:57 Order name: CBC with Diff; Complete Time: 13:02 ms3 12/29 11:57 Order name: LFT's; Complete Time: 13:20 ms3 12/29 11:57 Order name: Troponin HS; Complete Time: 13:20 ms3 12/29 11:57 Order name: Lipase; Complete Time: 13:20 ms3 12/29 11:57 Order name: US Abdomen Limited; Complete Time: 12:48 ms3 12/29 14:56 Order name: CT Abd/Pelvis - IV Contrast Only; Complete Time: 15:59 ms3 12/29 11:57 Order name: EKG; Complete Time: 11:57 ms3 12/29 11:57 Order name: Cardiac monitoring; Complete Time: 12:47 ms3 12/29 11:57 Order name: EKG - Nurse/Tech; Complete Time: 12:47 ms3 12/29 11:57 Order name: IV Saline Lock; Complete Time: 12:47 ms3 12/29 11:57 Order name: Labs collected and sent; Complete Time: 12:48 ms3 12/29 11:57 Order name: O2 Per Protocol; Complete Time: 12:25 ms3 12/29 11:57 Order name: O2 Sat Monitoring; Complete Time: 12:25 ms3 EC:57 Rate is 102 beats/min. Rhythm is regular. WI interval is normal. QRS interval is ms3 normal. Clinical impression: Sinus tachycardia. Interpreted by me. Reviewed by me. Administered Medications: 12:48 Drug: Famotidine IVP 20 mg IVP once; dilute with 10 mL 0.9% NaCl; give over 2 minutes me1 Route: IVP; Site: right antecubital; 13:08 Follow up: Response: No adverse reaction me1 13:11 Drug: morphine IVP or IV 4 mg IVP once over 4 mins Route: IVP; Infused Over: 4 mins; me1 Site: right antecubital; 13:30 Follow up: Response: No adverse reaction; Pain is decreased me1 Disposition Summary: 12/29/24 16:12 Discharge Ordered Notes: Location: Home ms3 Condition: Stable ms3 Diagnosis - Upper abdominal pain, unspecified ms3 Followup: ms3 - With: Rizwan Manriquez DO - When: 2 - 3 days - Reason: Re-evaluation by your physician Discharge Instructions: - Discharge Summary Sheet ms3 - Abdominal Pain, Adult ms3 Forms: - Medication Reconciliation Form ms3 - Antibiotic Education ms3 - Prescription Opioid Use ms3 - Patient Portal Instructions ms3 - Leadership Thank You Letter ms3 Signatures: Dispatcher [employer] EDMS Magy Salazar RN RN Roland Byers DO DO ms3 Shanthi Juan RN RN me1 Corrections: (The following items were deleted from the chart) 14:01 13:59 Differential diagnosis: abnormal EKG, ms3 ms3 14:01 13:59 Constitutional: Negative for fever, and chills. Respiratory: Negative for ms3 shortness of breath, cough, wheezing, and pleuritic chest pain, Abdomen/GI: Negative for abdominal pain, nausea, vomiting, diarrhea, and constipation, ms3
[2024-12-29 17:05] VITALS: TEMP 98.1
[2024-12-29 17:10] VITALS: BP 131/88; O2SAT 97
--- NOTE | 2024-12-31 12:37 | EKG ---
Test Date: 2024-12-29 Test Time: 12:38:54 Websphere Administrator: MEASUREMENT RESULTS: Intervals: Rate: 102 WI: 134 QRSD: 86 QT: 352 QTc: 458 Thayer: P: 45 WI: 134 QRS: 88 T: 45 INTERPRETIVE STATEMENTS: Sinus tachycardia Cannot rule out Anterior infarct, age undetermined Abnormal ECG Compared to ECG 05/17/2024 15:22:15 Right-axis deviation no longer present Myocardial infarct finding still present Electronically Signed On 12-31-24 12:28:00 CDT by Calvin Tate
== END 2024-12-29 16:32 | disposition home or self-care (01) ==
LOC: ER 11:30
DX: R10.11 Right upper quadrant pain (principal); R07.9 Chest pain, unspecified
CPT/HCPCS: 93005; 85025; 80048; 36415; 80076; 84484; 83690; 74177; 76705; 96375; 96374; 99285; Q9967